=== PATIENT | female | born 1950 | race Caucasian/White ===

== ENCOUNTER → 2017-10-30 14:46 | Outpatient (CLI) | payer MEDICARE, SELFPAY ==
--- NOTE | 2017-10-30 14:49 | HPBI_ITS ---
MAMMOGRAPHY - BILATERAL SCREENING REASON FOR EXAM: Female, 67 years old. Routine annual screening examination. PERTINENT HISTORY: Non-contributory. Remote left stereotactic breast biopsy. Chronic inversions of both nipples. TECHNIQUE: Digital bilateral breast dajuan (3D mammographic acquisition) in the CC and MLO projections. 2-D mediolateral oblique (MLO) and craniocaudad (CC) views of both breasts were obtained. CAD: Full Field Digital Mammography with Computer Added Detection was performed. COMPARISON: Comparison is made with prior study dated June 24, 2016 and November 14, 2014. FINDINGS: Breast Composition: There are scattered areas of fibroglandular density. There are no dominant masses or suspicious calcifications. A tissue clip marker is seen in the upper outer aspect of the left breast. This is unchanged. Stable bilateral benign-appearing axillary lymph nodes. No other significant abnormalities are identified. There has been no significant change since the prior study. HPBI/SCREENING MAMM (CAD), BILAT IMPRESSION: Stable bilateral screening mammogram. Yearly follow-up mammogram recommended. (A) ASSESSMENT CATEGORY: BIRADS Category 2: Benign. A letter regarding these results will be sent to the patient by the facility within 30 days. Approximately 10% of breast cancers are not detected by mammography. A normal mammogram should not delay biopsy of a clinically suspicious abnormality. [id number] Electronically Signed: Lyndon Lira MD at 8:49 EST Tel [phone], Service support ,
== END ==
PROVIDERS: Family Provider Family Medicine; PCP Family Medicine; Visit Provider Family Medicine
DX: Z12.31 Encounter for screening mammogram for malignant neoplasm of breast (principal)
CPT/HCPCS: 77063; 77067

== ENCOUNTER → 2020-05-10 10:22 | Outpatient (CLI) | payer MEDICARE, SELFPAY ==
--- NOTE | 2020-05-10 10:25 | BI_ITS ---
MAMMOGRAPHY - BILATERAL SCREENING REASON FOR EXAM: Female, 69 years old. Routine annual screening examination. PERTINENT HISTORY: Non-contributory. TECHNIQUE: Digital bilateral breast candace (3D mammographic acquisition) in the CC and MLO projections. 2-D mediolateral oblique (MLO) and craniocaudad (CC) views of both breasts were obtained. CAD: Full Field Digital Mammography with Computer Added Detection was performed. COMPARISON: Comparison is made with prior study of 10/30/2017 and 06/24/2016. FINDINGS: Breast Composition: There are scattered areas of fibroglandular density. There are no dominant masses or suspicious calcifications. No other significant abnormalities are identified. There has been no significant change since the prior study. BI/SCREEN MAMM (CAD) W/CANDACE BILAT IMPRESSION: Stable bilateral screening mammogram. Yearly follow-up mammogram recommended. (A) ASSESSMENT CATEGORY: BIRADS Category 2: Benign. A letter regarding these results will be sent to the patient by the facility within 30 days. Approximately 10% of breast cancers are not detected by mammography. A normal mammogram should not delay biopsy of a clinically suspicious abnormality. [id number] Electronically Signed: Lyndon Lira, at 12:02 EDT , Service support ,
--- NOTE | 2020-05-10 10:30 | BD_ITS ---
STUDY: DUAL ENERGY X-RAY ABSORPTIOMETRY / DXA REASON FOR EXAM: Female, 69 years old. 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 COMPARISON: Comparison is made with prior study done 06/24/2016. FINDINGS: Lumbar Spine (L1-L4): g/cm2 (0.995) / T-score (-1.4) / Z-score (0.2) Findings are suggestive of osteopenia with a low fracture risk. Left Femur Total: g/cm2 (0.786) / T-score (-1.8) / Z-score (-0.4) Left Femoral Neck: g/cm2 (0.813) / T-score (-1.6) / Z-score (0.0) Right Femur Total: g/cm2 (0.753) / T-score (-2.0) / Z-score (-0.7) Right Femoral Neck: g/cm2 (0.823) / T-score (-1.5) / Z-score (0.0) The T-Scores on the most recent prior examination were: Lumbar Spine (L1-L4): There has been worsening of bone density since the previous examination. Left Femur Total: which represents a worsening of 7.4%. Right Femur Total: which represents a worsening of 10.3%. BD/Dexa Bone Density Study IMPRESSION: The patient is considered osteopenic as outlined below according to World Regino Organization (WHO) criteria with a moderate fracture risk. There has been worsening of bone density since the previous examination. Reference Information: The T-score is the number of standard deviations above or below the standard which is normal for young adults at their peak bone mineral density. The World Health Organization (WHO) interprets the T-scores as follows: Above -1 Normal bone density Between -1 and -2.5 Osteopenia Equal to / or below -2.5 Osteoporosis As a practical clinical guideline, osteopenia may be graded as follows: Mild -1 through -1.5 Moderate -1.6 through -2.0 Severe -2.1 through -2.4 The Z-score is the number of standard deviations above or below age-matched controls. A Z-score of less than -1.5 would be considered abnormal. References: 1. NIH Osteoporosis and Related Bone Diseases http://www.osteo.org 2. International Society for Clinical Densitometry http://www.iscd.org 3. National Osteoporosis Foundation http://www.nof.org Electronically Signed: Lyndon Lira, at 12:47 EDT , Service support ,
== END ==
PROVIDERS: PCP Family Medicine; Referring Provider Family Medicine; Visit Provider Family Medicine
DX: Z12.31 Encounter for screening mammogram for malignant neoplasm of breast (principal); Z13.820 Encounter for screening for osteoporosis; Z78.0 Asymptomatic menopausal state
CPT/HCPCS: 77063; 77067; 77080

== ENCOUNTER → 2021-02-01 09:57 | Outpatient (CLI) | payer MEDICARE, SELFPAY ==
--- NOTE | 2021-02-01 10:03 | ECHOD_ITS ---
Reason For Study: Palpitations Procedure This was a 2D Doppler, Color Flow transthoracic echocardiogram. The study was technically difficult. Exam performed in department. Left Ventricle Normal LV size. Left ventricular systolic function is normal. The estimated ejection fraction is 60 %. Diastolic function is indeterminate. No regional wall motion abnormalities noted. Right Ventricle Normal RV size. Normal systolic function. Atria The left atrium is mildly enlarged. Normal right atrium. No doppler evidence for ASD. Bubble contrast study negative for right to left interatrial shunt. Mitral Valve There is no mitral annular calcification. Normal mitral valve. Mild-Moderate (1-2+) mitral valve insufficiency. Tricuspid Valve Normal tricuspid valve. Trivial tricuspid valve insufficiency. Right ventricular systolic pressure estimated to be 17 mmHg. Aortic Valve Trisinus/trileaflet aortic valve. Mild focal aortic valve calcification. Mild (1+) aortic valve insufficiency. Pulmonic Valve The pulmonic valve is not well visualized. Trivial pulmonic valve insufficiency. Great Vessels Normal sized aortic root. Pericardium/Pleural No pericardial effusion. Medication Performed a rapid injection of agitated mix of 9 cc saline and 1cc air to assess for atrial septal defect. MMode/2D Measurements & Calculations LVIDd: 3.6 cm IVSd: 1.1 cm Ao root diam: 3.8 cm LVIDs: 2.2 cm LVPWd: 1.1 cm RVDd: 3.1 cm FS: 39.3 % LAV(MOD-bp): 62.3 ml LVAd ap4: 29.5 cm2 SV(MOD-sp4): 55.8 ml LAV(MOD-bp) Indexed: 30.2 ml/m2 LVLd ap4: 8.0 cm LAV(MOD-sp2): 59.9 ml EDV(MOD-sp4): 89.4 ml LAV(MOD-sp4): 61.0 ml EDV(sp4-el): 92.3 ml LVAs ap4: 15.8 cm2 LVLs ap4: 6.5 cm ESV(MOD-sp4): 33.6 ml ESV(sp4-el): 32.6 ml EF(MOD-sp4): 62.4 % EF(sp4-el): 64.7 % SV(sp4-el): 59.7 ml LA A4 area: 21.2 cm2 LA dimension(2D): 3.9 cm RA A4 area: 14.7 cm2 Doppler Measurements & Calculations MV E max ian: 81.9 cm/sec Lat Peak E' Ian: 8.0 cm/sec Med Peak E' Ian: 5.0 cm/sec MV A max ian: 111.4 cm/sec E/E' lat: 10.2 E/E' med: 16.5 MV E/A: 0.74 Ao V2 max: 152.5 cm/sec AI max ian: 335.8 cm/sec LV V1 max: 117.0 cm/sec Ao max P.3 mmHg AI max P.1 mmHg LV V1 max P.5 mmHg Ao V2 mean: 109.3 cm/sec Ao mean P.1 mmHg AI dec slope: 143.3 cm/sec2 Ao V2 VTI: 33.0 cm AI P1/2t: 686.6 msec PA V2 max: 86.7 cm/sec PI end-d ian: 97.3 cm/sec TR max ian: 184.6 cm/sec TR max P.6 mmHg ECHO/Echo Complete Interpretation Summary The study was technically difficult. Left ventricular systolic function is normal. The estimated ejection fraction is 60 %. The left atrium is mildly enlarged. Mild-Moderate (1-2+) mitral valve insufficiency. Trivial tricuspid valve insufficiency. Mild focal aortic valve calcification. Mild (1+) aortic valve insufficiency. Trivial pulmonic valve insufficiency. Right ventricular systolic pressure estimated to be 17 mmHg. Diastolic function is indeterminate. Bubble contrast study negative for right to left interatrial shunt. Ordering Physician: Barb Singh Referring Physician: Barb Singh Performed By: Hien Ross, TINA, RVT
[2021-02-01 10:32] LABS: D-Dimer Quantitative (DVT/PE) 0.32 FEU/ug/m (0.27-0.49)
== END ==
PROVIDERS: PCP Internal Medicine; Referring Provider Internal Medicine; Visit Provider Internal Medicine
DX: R07.89 Other chest pain (principal); R00.2 Palpitations
CPT/HCPCS: 85379; 93225; 93226; 93306; A4216

== ENCOUNTER 2021-02-04 18:27 | Emergency (ER) | payer MEDICARE, SELFPAY ==
[2021-02-04 18:30] VITALS: BP 163/69; PULSE 49; RESP 16; TEMP 36.4; O2SAT 96; BMI 32.1
--- NOTE | 2021-02-04 18:54 | EKG12_ITS ---
Test Reason : PALPS Blood Pressure : / mmHG Vent. Rate : 092 BPM Atrial Rate : 092 BPM P-R Int : 158 ms QRS Dur : 084 ms QT Int : 370 ms P-R-T Axes : 033 001 039 degrees QTc Int : 457 ms Sinus rhythm with Premature atrial complexes in a pattern of bigeminy Minimal voltage criteria for LVH, may be normal variant Borderline ECG Confirmed by MITCH MOORE, FREDIS ([id number]), emblem fuser tender BRITTANY LYNN ([id number]) on 02/08/2021 8:14:35 AM Referred By: KHADIJAH Confirmed By:FREDIS MEYER MD
--- NOTE | 2021-02-04 18:54 | RAD_ITS ---
HISTORY: chest pain EXAMINATION/TECHNIQUE: XR Chest 1 View: Portable upright AP chest x-ray COMPARISON: None FINDINGS: LINES/DEVICES: None. LUNGS: No consolidation, edema or effusion. No pneumothorax. MEDIASTINUM AND CARDIOVASCULAR STRUCTURES: Cardiac silhouette not enlarged. Central airways and mediastinal contour are unremarkable. BONES AND SOFT TISSUES: No acute bony abnormalities. RAD/Chest 1 View (Portable) IMPRESSION: No radiographic evidence of acute cardiopulmonary disease. at 2019 Reported and signed by: Sandeep Ricardo MD Electronically Signed: Sandeep Ricardo MD at 20:18 EDT Tel , Service support ,
--- NOTE | 2021-02-04 18:56 | EDS_ITS ---
HPI History of Present Illness Chief Complaint: Palpitations Informant: patient Narrative Narrative: 70-year-old female presents to the emergency department with palpitations and chest pressure. Patient states that she has been feeling this for several weeks. She went to see her primary care physician. She had an echocardiogram and Holter monitor on Thursday. Echocardiogram showed normal left ventricular systolic function, ejection fraction of 60%. Right ventricular systolic pressure 17 - bubble study. There is mild to moderate mitral valve insufficiency and mild aortic valve insufficiency. The patient turned the Holter monitor and today there is been no results. She is also supposed to have a stress test on Thursday but she was unable to do it as she recently developed some sciatica. Today the patient developed chest pressure which she had not had before. She notes her blood pressures around 200 systolic at home before she came to the emergency department with a pulse around 49. PFSH [facility] Medical History (Updated 02/04/21 @ 19:[address] Roby Pardo DO) Asthma GERD (gastroesophageal reflux disease) Hypertension Home Medications metoprolol succinate 25 mg PO DAILY #30 ea 02/04/21 [Rx Last Taken Unknown] Allergy/AdvReac Type Severity Reaction Status Date / Time clarithromycin [From Biaxin] Allergy NEEDS Verified 02/04/21 18:29 FOLLOW-UP simvastatin Allergy Pain in Verified 02/04/21 18:29 joints no surgical history (Noncontributory) Social History (Updated 02/04/21 @ 18:[address] Roby Pardo DO) Smoking Status: Unknown if ever smoked substance use type: does not use ROS ROS ED Constitutional Constitutional ED: Denies chills or weight loss Eyes Eyes: Denies change in vision or diplopia ENT ENT ED: Denies ear pain, rhinorrhea or sore throat Cardiovascular Cardiovascular: Reports chest pain and palpitations; Denies orthopnea or racing heartbeat Respiratory/Chest Respiratory/Chest: Denies cough, dyspnea or orthopnea Gastrointestinal Gastrointestinal: Denies abdominal pain, diarrhea, nausea or vomiting Genitourinary Genitourinary ED: Denies dysuria, hematuria or urinary frequency Musculoskeletal Musculoskeletal: Denies arthralgias or myalgias Integumentary Denies abscess or rash Neurologic Neurologic: Denies headache(s) or weakness Psychiatric Psychiatric: Denies anxiety, depression, suicidal ideation or suicidal thoughts Endocrine Endocrinology: Denies polydipsia, polyphagia or polyuria Allergic/Immunologic Allergic/Immunologic ED: Denies mouth swelling, tongue swelling or urticaria EXAM Physical Exam Const Vital Signs: 02/04/21 18:30 02/04/21 18:46 02/04/21 19:33 Temperature 97.6 F L Temperature Source Temporal Pulse Rate 49 L 82 Respiratory Rate 16 17 Respiratory Effort Non-Labored Respiratory Pattern Normal Blood Pressure 163/69 H 145/79 H Blood Pressure Mean 100 101 Pulse Ox 96 92 Oxygen Delivery Method Room Air Room Air Positive well nourished and well developed General Appearance ED: well developed HEENT Reports normocephalic, head/scalp atraumatic and moist mucous membranes Eyes PERRL and EOMs intact bilaterally Neck no lymphadenopathy, supple and no JVD Resp normal respiratory effort and clear to auscultation bilaterally Cardio no murmurs Rate: other Other Details: Patient appears to be in bigeminy on the monitor. There is a strong first pulse followed by faint second 1 followed by compensatory pause. GI normal to inspection, nondistended, normoactive bowel sounds and non-tender Palpation: soft Back/Spine no CVA tenderness and normal ROM Extremity normal to inspection General Extremety ED: Negative for edema General Extremity: Negative for edema Neuro oriented x3 and CN's II-XII intact bilaterally Sensorium / Orientation: alert Motor Exam: strength 5/5 throughout Psych mental status grossly normal Mood & Affect: Negative for depressed or tearful Skin no rashes or lesions noted and no wounds Heart Score History: Slightly/Non-Suspicious ECG: Normal Age: >/= 65 years Risk Factors: 1 or 2 Risk Factors Troponin: </= Normal Limit Score: 3 MDM MDM MDM Narrative Medical decision making narrative: Patient continues to have supraventricular complexes in a bigeminy pattern. Blood pressure has been stable. BMP and magnesium and TSH are normal. Troponin is negative. My interpretation of the plain film of the chest x-ray is no acute process. I spoke with on-call cardiology Dr. Michael. We will place her on some metoprolol have her follow- up either with cardiology or with Dr. Signh. Her stress test has been rescheduled for the . Lab Data Labs: Laboratory Results - last 24 hr 02/04/21 02/04/21 19:00 19:00 WBC 10.8 RBC 4.63 Hgb 10.3 L Hct 34.4 L MCV 74.3 L MCH 22.2 L MCHC 29.9 L RDW Std Deviation 43.9 RDW Coeff of [place] 16.4 H Plt Count 223 MPV 11.2 Immature Gran % (Auto) 0.400 Neut % (Auto) 53.2 Lymph % (Auto) 35.2 Brule % (Auto) 9.5 Eos % (Auto) 1.2 Baso % (Auto) 0.5 Absolute Neuts (auto) 5.8 Absolute Lymphs (auto) 3.81 Nucleated RBC % 0 Sodium 142 Potassium 3.8 Chloride 108 H Carbon Dioxide 26.0 Anion Gap 8 BUN 25 H Creatinine 1.09 H Estim Creat Clear Calc 48.04 Est GFR (MDRD) Af Amer 64 Est GFR (MDRD) Non-Af 53 L BUN/Creatinine Ratio 22.9 H Glucose 124 H Calcium 8.8 Magnesium 2.1 Troponin I < 0.015 TSH 3.06 EKG Initial EKG: Attestation: I personally reviewed and interpreted this EKG as follows: Comments: EKG demonstrated sinus rhythm with premature atrial complexes in a pattern of bigeminy. Rate 92. Discharge Plan Triage Chief Complaint: Palpitations ED Provider: Roby Pardo Dx/Rx/DC Orders Clinical Impression: Atrial bigeminy Instructions: ED Palpitations Prescriptions: New metoprolol succinate 25 mg capsule,sprinkle,ER 24hr 25 mg PO DAILY Qty: 30 RF: 0 Primary Care Provider: Barb Singh Referrals: Barb Singh DO [Primary Care Provider] - As soon as possible Robert Michael MD [STAFF PHYSICIAN] - As soon as possible Disposition Disposition: Home, self care
[2021-02-04 19:28] LABS: Absolute Lymphocyte Count 3.81 X10^3/uL (0.83-4.51); Absolute Neutrophil Count 5.8 X10^3/uL (2.0-7.7); Basophil# 0.05 X10^3/uL; Basophil% 0.5 % (0-1); Eosinophil# 0.13 X10^3/uL; Eosinophils% 1.2 % (0-5); Hematocrit 34.4 % (37-47); Hemoglobin 10.3 g/dL (12.0-15.0); Lymphocyte # 3.81 X10^3/ul (0.83-4.51); Lymphocyte % 35.2 % (19-41); Mean Corp Hgb Conc 29.9 g/dL (32-36); Mean Corpuscular Hgb 22.2 pg (27.0-32.0); Mean Corpuscular Volume 74.3 fL (81-99); Mean Platelet Vol. 11.2 fl (6.2-12.0); Monocyte# 1.03 X10^3/uL; Monocyte% 9.5 % (0-10); NRBC Flagged by Analyzer 0 % (0-5); Neutrophil # 5.76 X10^3/uL (2.7-7.7); Neutrophil % 53.2 % (47-70); Platelet Count 223 K/mm3 (150-450); RBC Distribution Width CV 16.4 % (11.6-14.6); RBC Distribution Width SD 43.9 fl (35.1-43.9); Red Blood Count 4.63 M/mm3 (4.2-5.4); White Blood Count 10.8 K/mm3 (4.4-11.0)
[2021-02-04 19:33] VITALS: BP 145/79; PULSE 82; RESP 17; O2SAT 92
[2021-02-04 19:41] LABS: Anion Gap 8 (5-15); BUN 25 mg/dL (7-18); BUN/Creat Ratio 22.9 RATIO (10-20); Calcium,Total 8.8 mg/dL (8.5-10.1); Chloride 108 mmol/L (98-107); Creatinine, Serum 1.09 mg/dL (0.55-1.02); EST Glomerular Filtration Rate 53 mL/min (>60); Est Glom Filt Rate - Afr Amer 64 mL/min (>60); Estimated Creatinine Clearance 48.04 ml/min; Glucose 124 mg/dL (74-106); Magnesium 2.1 mg/dL (1.6-2.6); Potassium 3.8 mmol/L (3.5-5.1); Sodium Level 142 mmol/L (136-145); Thyroid Stim Hormone (TSH) 3.06 uIU/mL (0.358-3.74)
[2021-02-04 19:59] VITALS: BP 147/79; PULSE 78; RESP 14; O2SAT 93
== END 2021-02-04 20:04 | disposition home or self-care (01) ==
PROVIDERS: Emergency Provider Emergency Medicine; PCP Internal Medicine
DX: R00.8 Other abnormalities of heart beat (principal); J45.909 Unspecified asthma, uncomplicated; K21.9 Gastro-esophageal reflux disease without esophagitis; I10 Essential (primary) hypertension; Z79.899 Other long term (current) drug therapy
CPT/HCPCS: 71045; 80048; 83735; 84443; 84484; 85025; 93005; 99284; A4216

== ENCOUNTER → 2021-03-07 07:13 | Outpatient (CLI) | payer MEDICARE, SELFPAY ==
--- NOTE | 2021-03-07 09:40 | STRESSREP ---
Stress Test Report Date: 03-07-2021 Procedure: Exercise tolerance test/imaging study Indications: Chest pain; shortness of breath/dyspnea on exertion Consent: Per the patient Procedure: The patient exercised on a Robson protocol for 4 minutes and 41 completing Stage I and 1 minute and 41 seconds of Stage II achieving a peak heart rate of 164 bpm (107% predicted maximal heart rate) with a peak blood pressure 184/105 mmHg and a peak MET capacity of 6 METs. The baseline ECG demonstrated sinus rhythm. The peak exercise ECG demonstrated no obvious ECG changes. There was a rare PAC pretest and an occasional PAC/repetitive PAC in recovery. The functional capacity was considered decreased. There was chest discomfort/pressure and shortness of breath at peak exercise with subsequent spontaneous resolution in recovery. The examination was discontinued secondary to chest discomfort and shortness of breath/dyspnea. Impression: 1. Technically adequate (percent predicted maximal heart rate greater than 85%) exercise tolerance test 2. Peak exercise ECG with no obvious ECG changes 3. There was a rare PAC pretest and an occasional PAC/repetitive PAC in recovery 4. Normal resting blood pressure-hypertensive response to exercise 4. Nuclear images pending Myocardial perfusion imaging study: Technique: The patient was injected with 10.0 mCi of technetium 99m Cardiolite and subsequently rest SPECT Cardiolite nuclear imaging was obtained in the horizontal long, vertical long, and short axis views. he patient exercised on a Robson protocol for 4 minutes and 41 completing Stage I and 1 minute and 41 seconds of Stage II achieving a peak heart rate of 164 bpm (107% predicted maximal heart rate) with a peak blood pressure 184/105 mmHg and a peak MET capacity of 6 METs. The patient was injected with 33.0 mCi of technetium 99m Cardiolite and subsequently stress SPECT Cardiolite nuclear imaging was obtained in the horizontal long, vertical long, and short axis views. A gated Cardiolite study at peak stress was obtained. Interpretation: Rest and stress SPECT Cardiolite nuclear imaging status post realignment, normalization, and attenuation correction, demonstrates the appearance of relative uniform tracer uptake and myocardial perfusion appearing within normal limits. There is end systolic thickening and brightening. The gated Cardiolite study demonstrates myocardial thickening and inward wall motion. The reported LVEF is 67%. Impression: 1. Rest and stress SPECT Cardiolite nuclear imaging demonstrate relative uniform tracer uptake and myocardial perfusion appearing within normal limits. 2. The gated Cardiolite study reports an LVEF of 67%. This note was generated with [employer] software. It may contain incorrect words, spelling, and punctuation that were not noted in checking the note before signing.
== END ==
PROVIDERS: PCP Internal Medicine; Referring Provider Internal Medicine; Visit Provider Internal Medicine
DX: R07.89 Other chest pain (principal)
CPT/HCPCS: 78452; 93017; A9500; A4216

== ENCOUNTER → 2021-07-02 10:30 | Outpatient (CLI) | payer MEDICARE, SELFPAY | PROVIDERS: PCP Internal Medicine; Referring Provider Nurse Practitioner; Visit Provider Nurse Practitioner | DX: R00.2 Palpitations (principal) | CPT/HCPCS: 93225; 93226 ==

== ENCOUNTER → 2021-07-09 11:20 | Outpatient (CLI) | payer MEDICARE, SELFPAY | PROVIDERS: PCP Internal Medicine; Referring Provider Nurse Practitioner; Visit Provider Nurse Practitioner | DX: G47.10 Hypersomnia, unspecified (principal) | CPT/HCPCS: 95806 ==

== ENCOUNTER → 2021-07-11 09:46 | Outpatient (CLI) | payer MEDICARE, SELFPAY ==
[2021-07-11 10:51] LABS: Anion Gap 6 (5-15); BUN 20 mg/dL (7-18); BUN/Creat Ratio 21.1 RATIO (10-20); Calcium,Total 9.1 mg/dL (8.5-10.1); Chloride 107 mmol/L (98-107); Creatinine, Serum 0.95 mg/dL (0.55-1.02); EST Glomerular Filtration Rate 62 mL/min (>60); Est Glom Filt Rate - Afr Amer 75 mL/min (>60); Glucose 89 mg/dL (74-106); Magnesium 2.2 mg/dL (1.6-2.6); Sodium Level 141 mmol/L (136-145)
== END ==
PROVIDERS: PCP Internal Medicine; Visit Provider Nurse Practitioner Gerontology
DX: I49.1 Atrial premature depolarization (principal)
CPT/HCPCS: 36415; 80048; 83735

== ENCOUNTER → 2021-07-23 08:23 | Outpatient (CLI) | payer MEDICARE, SELFPAY ==
--- NOTE | 2021-07-23 08:25 | BI_ITS ---
MAMMOGRAPHY - BILATERAL SCREENING 3-D TOMOSYNTHESIS REASON FOR EXAM: Female, 70 years old. Routine screening PERTINENT HISTORY: No significant family history. TECHNIQUE: 2-D mammograms and 3-D Tomosynthesis of the breast (s) were performed. CAD was performed. COMPARISON: 05/10/2020 FINDINGS: The breast composition is composed of scattered fibroglandular density. Scattered benign calcifications are seen. No dense spiculated masses or suspicious microcalcifications are identified. No architectural distortion is identified. There is no skin thickening or retraction. There has been no significant change since the prior study. BI/SCRN MAMM (CAD)W/CANDACE BILAT IMPRESSION: No mammographic signs of malignancy. Routine yearly mammograms recommended. ASSESSMENT CATEGORY: BIRADS Category 1: Negative. A letter regarding these results will be sent to the patient by the facility within 30 days. FOLLOW UP RECOMMENDATION: Yearly follow up mammogram recommended. (A) Approximately 10% of breast cancers are not detected by mammography. A normal mammogram should not delay biopsy of a clinically suspicious abnormality. Electronically Signed: Lalito Cornejo MD at 11:26 EST , Service support ,
== END ==
PROVIDERS: PCP Internal Medicine; Referring Provider Nurse Practitioner; Visit Provider Nurse Practitioner
DX: Z12.31 Encounter for screening mammogram for malignant neoplasm of breast (principal)
CPT/HCPCS: 77063; 77067

== ENCOUNTER 2021-09-19 13:09 | Outpatient (CLI) | payer MEDICARE, SELFPAY | END 2021-09-19 23:59 | disposition short-term general hospital (02) | LOC: LABSPEC 13:13 | PROVIDERS: PCP Internal Medicine; Visit Provider Internal Medicine | DX: R05.9 Cough, unspecified (principal) | CPT/HCPCS: 87635; U0003; U0005 ==

== ENCOUNTER 2021-10-01 09:36 | Emergency (ER) | payer MEDICARE, SELFPAY ==
[2021-10-01 09:37] VITALS: BP 128/85; PULSE 46; RESP 18; TEMP 36.6; O2SAT 96; BMI 33.6
[2021-10-01 09:46] VITALS: BP 128/85; PULSE 46; RESP 18; TEMP 36.6; O2SAT 96
--- NOTE | 2021-10-01 09:59 | EDS_ITS ---
HPI History of Present Illness Chief Complaint: Diarrhea Informant: patient Narrative Narrative: 71-year-old female presenting to the emergency department with diarrhea. Patient states that on 22 September she started on amoxicillin for infection of her labia. She states that after a couple days she developed diarrhea and stopped the antibiotic because the abscess had ruptured. She states the diarrhea got better but has now returned. She states that about 1 h our after eating she begins to see the small particles of food that she ate in her stool. She had notes a headache which she believes is from dehydration. No syncope or near syncope. She spoke with her doctor today who recommended an emergency department visit [facility] Medical History Anemia Asthma Essential hypertension GERD (gastroesophageal reflux disease) History of migraine headaches Hyperlipidemia IBS (irritable bowel syndrome) Osteoarthritis Osteopenia Premature atrial contraction Home Medications albuterol sulfate 90 mcg/actuation aerosol inhaler 2 puff INHALATION Q6H PRN 03/12/21 [History Last Taken Unknown] alendronate 70 mg tablet 70 mg PO QWEEK 03/12/21 [History Last Taken Unknown] aspirin 81 mg tablet,delayed release 81 mg PO DAILY 03/12/21 [History Last Taken Unknown] calcium carbonate 400 mg calcium (1,000 mg) chewable tablet 400 mg PO DAILY 03/12/21 [History Last Taken Unknown] cholecalciferol (vitamin D3) 125 mcg (5,000 unit) tablet 125 mcg PO DAILY 03/12/21 [History Last Taken Unknown] fluticasone 250 mcg-salmeterol 50 mcg/dose blistr powdr for inhalation 1 inh INHALATION BID 03/12/21 [History Last Taken Unknown] loratadine 10 mg tablet 10 mg PO DAILY 03/12/21 [History Last Taken Unknown] losartan 50 mg tablet 50 mg PO DAILY 03/12/21 [History Last Taken Unknown] omeprazole 20 mg capsule,delayed release 20 mg PO DAILY 03/12/21 [History Last Taken Unknown] polyethylene glycol 3350 17 gram oral powder packet 17 g PO DAILY 03/12/21 [History Last Taken Unknown] zinc 50 mg tablet 50 mg PO DAILY 03/12/21 [History Last Taken Unknown] ferrous sulfate 105 mg-C 500 mg-folic acid 800 mcg tablet,extend.rel 1 tab PO DAILY 03/21/21 [History Last Taken Unknown] metoprolol succinate 25 mg tablet,extended release 24 hr 25 mg PO DAILY #90 tab 06/21/21 [Rx Last Taken Unknown] Allergy/AdvReac Type Severity Reaction Status Date / Time clarithromycin [From Biaxin] Allergy NEEDS Verified 10/01/21 09:39 FOLLOW-UP simvastatin Allergy Pain in Verified 10/01/21 09:39 joints Family History Mother Hypertension CVA (cerebral vascular accident) Asthma Father CKD (chronic kidney disease) Brother Crohn's disease Brother , Age 57 Myocardial infarction Son Cancer lymphoma Surgical History History of partial hysterectomy History of tonsillectomy Social History Smoking Status: Never smoker alcohol intake: never substance use type: does not use caffeine: No ROS ROS ED Constitutional Constitutional ED: Denies chills, fever(s) or weight loss Eyes Eyes: Denies change in vision or diplopia ENT ENT ED: Denies ear pain, rhinorrhea or sore throat Cardiovascular Cardiovascular: Denies chest pain, orthopnea, palpitations or racing heartbeat Respiratory/Chest Respiratory/Chest: Denies cough, dyspnea or orthopnea Gastrointestinal Gastrointestinal: Reports diarrhea; Denies abdominal pain, nausea or vomiting Genitourinary Genitourinary ED: Denies dysuria, hematuria or urinary frequency Musculoskeletal Musculoskeletal: Denies arthralgias or myalgias Integumentary Denies abscess or rash Neurologic Neurologic: Reports headache(s); Denies weakness Psychiatric Psychiatric: Denies anxiety, depression, suicidal ideation or suicidal thoughts Endocrine Endocrinology: Denies polydipsia, polyphagia or polyuria Allergic/Immunologic Allergic/Immunologic ED: Denies mouth swelling, tongue swelling or urticaria EXAM Physical Exam Const Vital Signs: 10/01/21 09:37 10/01/21 09:46 10/01/21 11:14 Temperature 97.8 F 97.8 F 97.6 F L Temperature Source Temporal Temporal Oral Pulse Rate 46 L 46 L 81 Respiratory Rate 18 18 16 Blood Pressure 128/85 H 128/85 H 138/77 H Blood Pressure Mean 99 99 97 Pulse Ox 96 96 97 Oxygen Delivery Method Room Air Room Air Room Air 10/01/21 12:41 Temperature Temperature Source Pulse Rate 82 Respiratory Rate 16 Blood Pressure 138/77 H Blood Pressure Mean 97 Pulse Ox 97 Oxygen Delivery Method Room Air Positive well nourished, well developed and obese General Appearance ED: well developed Nutritional Appearance: obese HEENT Reports normocephalic, head/scalp atraumatic, TM's clear and moist mucous membranes Negative for trauma Tympanic Membrane ED: Yes TM's clear Eyes PERRL and EOMs intact bilaterally Neck no lymphadenopathy, supple and no JVD Resp normal respiratory effort and clear to auscultation bilaterally Cardio regular rate, regular rhythm and no murmurs GI non-tender and non-distended Auscultation: hyperactive bowel sounds Palpation: soft Back/Spine no CVA tenderness and normal ROM Extremity normal to inspection General Extremety ED: Negative for edema General Extremity: Negative for edema Neuro oriented x3 and CN's II-XII intact bilaterally Sensorium / Orientation: alert Motor Exam: strength 5/5 throughout Psych mental status grossly normal Mood & Affect: Negative for depressed or tearful Skin no rashes or lesions noted and no wounds MDM MDM MDM Narrative Medical decision making narrative: White count elevated 13.5. Glucose 114. Electrolytes are normal. Creatinine 0.9 with a BUN of 13. Patient unable to give a stool specimen in the 3-1/2 hours that she has been here. She will be discharged home with an outpatient order for stool studies. Return if worsening or concerns Lab Data Attestation: I reviewed the patient's lab results. Labs: Laboratory Results - last 24 hr 10/01/21 10/01/21 09:54 09:54 WBC 13.5 H RBC 5.09 Hgb 15.9 H Hct 45.5 MCV 89.4 MCH 31.2 MCHC 34.9 RDW Std Deviation 40.2 RDW Coeff of [place] 12.3 Plt Count 231 MPV 10.4 Immature Gran % (Auto) 0.300 Neut % (Auto) 80.1 H Lymph % (Auto) 13.[address] [place] % (Auto) 5.1 Eos % (Auto) 0.7 Baso % (Auto) 0.3 Absolute Neuts (auto) 10.9 H Absolute Lymphs (auto) 1.83 Nucleated RBC % 0 Sodium 139 Potassium 3.8 Chloride 109 H Carbon Dioxide 24.0 Anion Gap 6 BUN 13 Creatinine 0.92 Estim Creat Clear Calc 56.12 Est GFR (MDRD) Af Amer 78 Est GFR (MDRD) Non-Af 64 BUN/Creatinine Ratio 14.1 Glucose 114 H Calcium 8.7 Total Bilirubin 0.40 AST 16 ALT 22 Alkaline Phosphatase 46 Total Protein 7.5 Albumin 3.6 Globulin 3.9 Albumin/Globulin Ratio 0.9 Discharge Plan Triage Chief Complaint: Diarrhea ED Provider: Roby Pardo Dx/Rx/DC Orders Clinical Impression: Diarrhea Instructions: ED Diarrhea, Unknown Cause Prescriptions: No Action ferrous [id number] acid 105 mg iron- 500 mg-800 mcg tablet extended release 1 tab PO DAILY RF: 0 omeprazole 20 mg capsule,delayed release(DR/EC) 20 mg PO DAILY RF: 0 losartan 50 mg tablet 50 mg PO DAILY RF: 0 albuterol sulfate [ProAir HFA] 90 mcg/actuation HFA aerosol inhaler 2 puff inhalation Q6H PRN (Reason: Wheezing) RF: 0 fluticasone propion-salmeterol [Advair Diskus] 250-50 mcg/dose blister with device 1 inh inhalation BID RF: 0 cholecalciferol (vitamin D3) 125 mcg (5,000 unit) tablet 125 mcg PO DAILY RF: 0 loratadine [Claritin] 10 mg tablet 10 mg PO DAILY RF: 0 polyethylene glycol 3350 [Miralax] 17 gram powder in packet 17 g PO DAILY RF: 0 zinc 50 mg tablet 50 mg PO DAILY RF: 0 alendronate 70 mg tablet 70 mg PO QWEEK RF: 0 calcium carbonate 400 mg calcium (1,000 mg) tablet,chewable 400 mg PO DAILY RF: 0 aspirin [Adult Low Dose Aspirin] 81 mg tablet,delayed release (DR/EC) 81 mg PO DAILY RF: 0 metoprolol succinate 25 mg tablet extended release 24 hr 25 mg PO DAILY Qty: 90 RF: 3 Primary Care Provider: Anju Verde Referrals: Anju Verde DO [Primary Care Provider] - 3-5 Days Disposition Disposition: Home, Self Care
[2021-10-01] MEDS: 0.9% Normal Saline 1,000 ML 1000 ML IV (10:04)
[2021-10-01 10:05] LABS: Absolute Lymphocyte Count 1.83 X10^3/uL (0.83-4.51); Absolute Neutrophil Count 10.9 X10^3/uL (2.0-7.7); Basophil# 0.04 X10^3/uL; Basophil% 0.3 % (0-1); Eosinophil# 0.09 X10^3/uL; Eosinophils% 0.7 % (0-5); Hematocrit 45.5 % (37-47); Hemoglobin 15.9 g/dL (12.0-15.0); Lymphocyte # 1.83 X10^3/ul (0.83-4.51); Lymphocyte % 13.5 % (19-41); Mean Corp Hgb Conc 34.9 g/dL (32-36); Mean Corpuscular Hgb 31.2 pg (27.0-32.0); Mean Corpuscular Volume 89.4 fL (81-99); Mean Platelet Vol. 10.4 fl (6.2-12.0); Monocyte# 0.69 X10^3/uL; Monocyte% 5.1 % (0-10); NRBC Flagged by Analyzer 0 % (0-5); Neutrophil # 10.85 X10^3/uL (2.7-7.7); Neutrophil % 80.1 % (47-70); Platelet Count 231 K/mm3 (150-450); RBC Distribution Width CV 12.3 % (11.6-14.6); RBC Distribution Width SD 40.2 fl (35.1-43.9); Red Blood Count 5.09 M/mm3 (4.2-5.4); White Blood Count 13.5 K/mm3 (4.4-11.0)
[2021-10-01 10:23] LABS: ALB/GLOB Ratio 0.9 RATIO (0.9-2.4); AST(SGOT) 16 U/L (15-37); Alanine Aminotransfer ALT/SGPT 22 U/L (13-56); Albumin, Serum 3.6 g/dL (3.2-5.0); Alkaline Phosphatase 46 U/L (45-117); Anion Gap 6 (5-15); BUN 13 mg/dL (7-18); BUN/Creat Ratio 14.1 RATIO (10-20); Calcium,Total 8.7 mg/dL (8.5-10.1); Chloride 109 mmol/L (98-107); Creatinine, Serum 0.92 mg/dL (0.55-1.02); EST Glomerular Filtration Rate 64 mL/min (>60); Est Glom Filt Rate - Afr Amer 78 mL/min (>60); Estimated Creatinine Clearance 56.12 ml/min; Globulin 3.9 g/dL (2.2-4.2); Glucose 114 mg/dL (74-106); Potassium 3.8 mmol/L (3.5-5.1); Protein, Total 7.5 g/dL (6.4-8.2); Sodium Level 139 mmol/L (136-145)
[2021-10-01 11:14] VITALS: BP 138/77; PULSE 81; RESP 16; TEMP 36.4; O2SAT 97
--- NOTE | 2021-10-01 11:51 | NURSING ---
PER LAB, CANCELING STOOL. NOT ENOUGH
[2021-10-01 12:41] VITALS: BP 138/77; PULSE 82; RESP 16; O2SAT 97
--- NOTE | 2021-10-01 12:53 | ED.RN ---
PT ATTEMPTED TO GO TO THE BR AGAIN WITHOUT SUCCESS. PHYSICIAN AWARE
--- NOTE | 2021-10-01 15:23 | CHAPLAIN ---
Type of Pastoral Visit _x__ Initial Visit ___ Follow-up Visit ___ On-call Visit ___ General Patient Visit ___ Spiritual Assessment ___ Family Conference ___ Bereavement ___ Rapid Response ___ Code Blue ___ Other (describe below) Pastoral Care Referral From _x__ Patient ___ Family ___ Nurse ___ Physician ___ [employer] ___ Manager Product Support ___ Other (describe below) Sacrament/Intervention _x__ Active listening ___ Anointing ___ Islam ___ Bereavement ___ Communion ___ Camila exploration ___ ___ Life review ___ Prayer ___ Reconciliation ___ Sacrament of Sick _x__ Supportive presence ___ Wedding ___ Other (describe below) Pastoral Comments
== END 2021-10-01 13:41 | disposition home or self-care (01) ==
PROVIDERS: Emergency Provider Emergency Medicine; PCP Internal Medicine; Visit Provider Emergency Medicine
DX: R19.7 Diarrhea, unspecified (principal); I10 Essential (primary) hypertension; E78.5 Hyperlipidemia, unspecified; R51.9 Headache, unspecified
CPT/HCPCS: 80053; 85025; 87177; 87209; 87493; 87506; 96360; 99283; J7030; A4216

== ENCOUNTER 2021-10-01 14:35 | Outpatient (CLI) | payer MEDICARE, SELFPAY | END 2021-10-01 23:59 | disposition short-term general hospital (02) | LOC: LABSPEC 14:38 | PROVIDERS: PCP Internal Medicine; Referring Provider Internal Medicine; Visit Provider Internal Medicine | DX: R19.7 Diarrhea, unspecified (principal) | CPT/HCPCS: 87177; 87209; 87493; 87506 ==

== ENCOUNTER 2021-10-07 20:00 | Outpatient (CLI) | payer MEDICARE, SELFPAY | END 2021-10-07 23:59 | disposition home or self-care (01) | PROVIDERS: PCP Internal Medicine; Visit Provider Nurse Practitioner Acute Care | DX: G47.30 Sleep apnea, unspecified (principal) | CPT/HCPCS: 95810 ==

== ENCOUNTER 2021-11-19 08:12 | Outpatient (CLI) | payer MEDICARE, SELFPAY ==
--- NOTE | 2021-11-19 08:17 | RAD_ITS ---
STUDY: X-RAY - ESOPHAGUS (BARIUM SWALLOW) WITH FLUOROSCOPY REASON FOR EXAM: Female, 71 years old. CHOKING TECHNIQUE: 18 view(s) of the esophagus were obtained following swallowing of barium. FLUOROSCOPY TIME (if supplied): (28 seconds) minutes/seconds COMPARISON: None. FINDINGS: There is no demonstrated esophageal foreign body. There is no demonstrated stricture or mucosal abnormality. Normal gastroesophageal junction, without a demonstrated hiatal hernia. The patient ingested a 12 mm tablet that barium without difficulty. Normal visualized aortic arch and descending thoracic aorta. Normal visualized pulmonary parenchyma. Normal visualized osseous structures of the thorax. RAD/Esophagus Dual Contrast IMPRESSION: Normal plain film x-ray examination (barium swallow) of the esophagus. Electronically Signed: Lyndon Lira MD at 10:11 EDT ,
== END 2021-11-19 23:59 | disposition home or self-care (01) ==
PROVIDERS: PCP Internal Medicine; Referring Provider Internal Medicine; Visit Provider Internal Medicine
DX: T17.908A Unspecified foreign body in respiratory tract, part unspecified causing other injury, initial encounter (principal)
CPT/HCPCS: 74221

== ENCOUNTER → 2022-01-09 | Outpatient (CLI) | payer MEDICARE, SELFPAY | END | disposition home or self-care (01) | LOC: SL 12:20 | PROVIDERS: PCP Internal Medicine; Visit Provider Nurse Practitioner Acute Care | DX: Z46.89 Encounter for fitting and adjustment of other specified devices (principal) ==

== ENCOUNTER → 2022-01-30 | Outpatient (CLI) | payer MEDICARE, SELFPAY ==
--- NOTE | 2022-01-30 10:52 | US_ITS ---
STUDY: ABDOMINAL ULTRASOUND - RIGHT UPPER QUADRANT REASON FOR VISIT: Female, 71 years old FATTY LIVER TECHNIQUE: Ultrasound evaluation of the right upper quadrant was performed with real-time and static shelley-scale imaging. TECHNICAL QUALITY: Limited. Examination limited by bowel gas. COMPARISON: Comparison is made with prior examination dated 06/24/2016. FINDINGS: Liver: The liver measures 13.2 cm. There is increased echogenicity consistent with fatty infiltration. The bile ducts are within normal limits. There is hepatic color flow. The direction of portal flow is hepatopetal. There is no demonstrated mass lesion. Gallbladder: Normal distended gallbladder. The gallbladder wall measures 3 mm. There is a negative sonographic Bravo''s sign. There is no pericholecystic fluid. There are no gallstones. Common Bile Duct (C.B.D.): The common bile duct measures 1 mm. Pancreas: Normal size of the head, body and tail of the pancreas. There is normal echogenicity of the pancreas. There is no demonstrated pancreatic mass or cyst. Right Kidney: Normal size of the right kidney. The right kidney measures 12 cm x 5 cm x 4.5 cm. Normal renal cortex. The right cortex measures 1 cm. There is no demonstrated renal mass or cyst. There is an extra-renal pelvis of the right kidney. There is no distention of the renal calyces. US/Abdomen Limited IMPRESSION: Fatty infiltration of the liver. Right extrarenal pelvis. Electronically Signed: Lynodn Lira MD at 11:58 EDT ,
== END | disposition home or self-care (01) ==
PROVIDERS: PCP Internal Medicine; Referring Provider Internal Medicine; Visit Provider Internal Medicine
DX: K76.0 Fatty (change of) liver, not elsewhere classified (principal); M54.2 Cervicalgia
CPT/HCPCS: 76705

== ENCOUNTER → 2022-05-08 | Outpatient (CLI) | payer MEDICARE, SELFPAY ==
--- NOTE | 2022-05-08 13:15 | VDLE_ITS ---
Reason For Study: edema, post covid Procedure LEFT This is a venous duplex using B-mode, color GSV is normal. flow and spectral Doppler. CFV is compressible, spontaneous, phasic, Exam performed in department. competent, and demonstrates normal The exam was abbreviated due to the COVID 19 augmentation. protocol. FV is compressible, spontaneous, phasic, The exam was diagnostic. competent and demonstrates normal A preliminary report was called and/or faxed augmentation. to Dr. Verde. POP V is compressible, spontaneous, phasic, competent and demonstrates normal augmentation. T/P Trunk is compressible. PTV is compressible. LT PerV is compressible. VL/Venous Duplex US, Unilateral Interpretation Summary Deep veins of the left lower extremity are patent and compressible segmentally. There is no evidence of left lower extremity deep vein thrombosis. Valvular competence appears intac t within the proximal deep venous system on the left . The left great saphenous vein appears patent a nd compressible segmentally. Ordering Physician: Anju Verde Performed By: Mario Alberto Vidal RVT
== END | disposition home or self-care (01) ==
LOC: CVS 13:03
PROVIDERS: PCP Internal Medicine; Referring Provider Internal Medicine; Visit Provider Internal Medicine
DX: R60.0 Localized edema (principal); U09.9 Post COVID-19 condition, unspecified
CPT/HCPCS: 93971

== ENCOUNTER → 2022-05-16 | Outpatient (CLI) | payer MEDICARE, SELFPAY ==
--- NOTE | 2022-05-16 16:05 | VDLE_ITS ---
Reason For Study: Pain RIGHT LEFT CFV is compressible, spontaneous, phasic, GSV is normal. competent and demonstrates normal CFV is compressible, spontaneous, phasic, augmentation. competent, and demonstrates normal Procedure augmentation. This is a venous duplex using B-mode, color FV is compressible, spontaneous, phasic, flow and spectral Doppler. competent and demonstrates normal Exam performed in department. augmentation. A preliminary report was called and/or faxed POP V is compressible, spontaneous, phasic, to Ortho: Estefany, PCP: Dr. Verde. competent and demonstrates normal augmentation. T/P Trunk is compressible. Acute deep vein thrombosis is noted in the left PTV, PeroV and SoleusV. VL/Venous Duplex US, Unilateral Interpretation Summary Acute deep venous thrombosis left posterior tibial, peroneal, and soleus veins. Patent and compressible left great saphenous veins Normal flow values right common femoral vein Ordering Physician: Atul Rocha Referring Physician: Anju Verde D.O. Performed By: Karla Ocampo RVT
== END | disposition home or self-care (01) ==
LOC: CVS 15:16
PROVIDERS: PCP Internal Medicine; Referring Provider Physician Assistant Surgical; Visit Provider Physician Assistant Surgical
DX: M79.662 Pain in left lower leg (principal)
CPT/HCPCS: 93971

== ENCOUNTER → 2022-07-30 | Outpatient (CLI) | payer MEDICARE, SELFPAY ==
--- NOTE | 2022-07-30 08:48 | BD_ITS ---
STUDY: DUAL ENERGY X-RAY ABSORPTIOMETRY / DXA REASON FOR EXAM: Female, 71 years old. [id number] TECHNIQUE: Bone Mineral Density (BMD) measurements of lumbar spine and bilateral hips were obtained. COMPARISON: Comparison is made with prior study dated 05/10/2020. FINDINGS: Lumbar Spine (L1-L4): g/cm2 (0.915) / T-score (-1.1) / Z-score (1.0) Findings are suggestive of osteopenia with a low fracture risk. Left Femur Total: g/cm2 (0.779) / T-score (-1.3) / Z-score (0.2) Left Femoral Neck: g/cm2 (0.669) / T-score (-1.6) / Z-score (0.2) Right Femur Total: g/cm2 (0.760) / T-score (-1.5) / Z-score (0.0) Right Femoral Neck: g/cm2 (0.665) / T-score (-1.7) / Z-score (0.1) The T-Scores on the most recent prior examination were: Lumbar Spine (L1-L4): There has been improvement of bone density since the previous examination. Left Femur Total: which represents an improvement of 7.3%. Right Femur Total: which represents an improvement of 9.4%. BD/Dexa Bone Density Study IMPRESSION: The patient is considered osteopenic as outlined below according to World Regino Organization (WHO) criteria with a moderate fracture risk. There has been improvement of bone density since the previous examination. Reference Information: The T-score is the number of standard deviations above or below the standard which is normal for young adults at their peak bone mineral density. The World Health Organization (WHO) interprets the T-scores as follows: Above -1 Normal bone density Between -1 and -2.5 Osteopenia Equal to / or below -2.5 Osteoporosis As a practical clinical guideline, osteopenia may be graded as follows: Mild -1 through -1.5 Moderate -1.6 through -2.0 Severe -2.1 through -2.4 The Z-score is the number of standard deviations above or below age-matched controls. A Z-score of less than -1.5 would be considered abnormal. References: 1. NIH Osteoporosis and Related Bone Diseases www osteo.org 2. International Society for Clinical Densitometry www iscd.org 3. National Osteoporosis Foundation www nof.org Electronically Signed: Lyndon Lira MD at 10:26 EST ,
== END | disposition home or self-care (01) ==
LOC: OPBD 08:38
PROVIDERS: PCP Internal Medicine; Visit Provider Internal Medicine
DX: Z78.0 Asymptomatic menopausal state (principal)
CPT/HCPCS: 77080

== ENCOUNTER → 2022-08-05 | Outpatient (CLI) | payer MEDICARE, SELFPAY ==
--- NOTE | 2022-08-05 09:44 | VDLE_ITS ---
Reason For Study: acute embolism and thrombus Procedure LEFT This is a venous duplex using B-mode, color GSV is normal. flow and spectral Doppler. CFV is compressible, spontaneous, phasic, Exam performed in department. competent, and demonstrates normal The exam was abbreviated due to the COVID 19 augmentation. protocol. FV is compressible, spontaneous, phasic, The exam was diagnostic. competent and demonstrates normal A preliminary report was called and/or faxed augmentation. to Dr. Verde. POP V is compressible, spontaneous, phasic, competent and demonstrates normal augmentation. T/P Trunk is compressible. PTV is compressible. LT PerV is compressible. PTV, Peroneal V and Soleus V are now compressible. VL/Venous Duplex US, Unilateral Interpretation Summary There is no evidence of left lower extremity deep vein thrombosis. Left great s aphenous vein appears patent and compressible segmentally. This examination demonstrates improvement from May 16, 2022 when the patient had deep venous thrombosis involving the left posterior t ibial, peroneal, and soleus veins Abbreviated COVID-19 protocol utilized Ordering Physician: Anju Verde Performed By: Mario Alberto Vidal RVT
== END | disposition home or self-care (01) ==
LOC: CVS 09:43
PROVIDERS: PCP Internal Medicine; Referring Provider Internal Medicine; Visit Provider Internal Medicine
DX: I82.442 Acute embolism and thrombosis of left tibial vein (principal)
CPT/HCPCS: 93971

== ENCOUNTER → 2022-09-17 | Outpatient (CLI) | payer MEDICARE, SELFPAY ==
--- NOTE | 2022-09-17 09:08 | BI_ITS ---
MAMMOGRAPHY - BILATERAL SCREENING REASON FOR EXAM: Female, 72 years old. Routine annual screening examination. PERTINENT HISTORY: Non-contributory. Remote left stereotactic breast biopsy. Chronic bilateral nipple inversion. TECHNIQUE: Digital bilateral breast candace (3D mammographic acquisition) in the CC and MLO projections. 2-D mediolateral oblique (MLO) and craniocaudad (CC) views of both breasts were obtained. CAD: Full Field Digital Mammography with Computer Added Detection was performed. COMPARISON: Comparison is made with prior study dated 07/23/2021 and 05/10/2020. FINDINGS: Breast Composition: There are scattered areas of fibroglandular density. There are no dominant masses or suspicious calcifications. Stable benign-appearing bilateral axillary lymph nodes. A tissue clip marker is seen in the deep upper lateral portion of the left breast. No other significant abnormalities are identified. There has been no significant change since the prior study. BI/SCRN MAMM (CAD)W/CANDACE BILAT IMPRESSION: Stable bilateral screening mammogram. Yearly follow-up mammogram recommended. (A) ASSESSMENT CATEGORY: BIRADS Category 2: Benign. A letter regarding these results will be sent to the patient by the facility within 30 days. Approximately 10% of breast cancers are not detected by mammography. A normal mammogram should not delay biopsy of a clinically suspicious abnormality. [id number] Electronically Signed: Lyndon Lira MD at 10:45 EST ,
== END | disposition home or self-care (01) ==
LOC: OPBI 09:06
PROVIDERS: PCP Internal Medicine; Referring Provider Internal Medicine; Visit Provider Internal Medicine
DX: Z12.31 Encounter for screening mammogram for malignant neoplasm of breast (principal); N64.59 Other signs and symptoms in breast
CPT/HCPCS: 77063; 77067

== ENCOUNTER 2022-09-18 09:08 | Day surgery (SDC) | payer MEDICARE, SELFPAY ==
--- NOTE | 2022-09-08 12:33 | RAD_ITS ---
INDICATION: PREOP EXAMINATION/TECHNIQUE: X-RAY - XR Chest 2 Views COMPARISON: 02/04/2021. FINDINGS: The lungs are clear. Tortuous and calcified thoracic aorta. The heart is not enlarged. No pleural effusion or pneumothorax. Degenerative changes of the thoracic spine. RAD/Chest PA and Lateral IMPRESSION: No acute radiographic abnormalities. Electronically Signed: Dave Johnson MD at 17:32 EST ,
[2022-09-08 13:39] LABS: Absolute Lymphocyte Count 3.18 X10^3/uL (0.83-4.51); Absolute Neutrophil Count 4.2 X10^3/uL (2.0-7.7); Basophil# 0.05 X10^3/uL; Basophil% 0.6 % (0-1); Eosinophil# 0.11 X10^3/uL; Eosinophils% 1.3 % (0-5); Hematocrit 47.9 % (37-47); Lymphocyte # 3.18 X10^3/ul (0.83-4.51); Lymphocyte % 38.9 % (19-41); Mean Corp Hgb Conc 33.4 g/dL (32-36); Mean Corpuscular Hgb 30.9 pg (27.0-32.0); Mean Corpuscular Volume 92.6 fL (81-99); Mean Platelet Vol. 10.9 fl (6.2-12.0); Monocyte# 0.61 X10^3/uL; Monocyte% 7.5 % (0-10); NRBC Flagged by Analyzer 0 % (0-5); Neutrophil % 51.5 % (47-70); Platelet Count 231 K/mm3 (150-450); RBC Distribution Width CV 13.6 % (11.6-14.6); RBC Distribution Width SD 46.5 fl (35.1-43.9); Red Blood Count 5.17 M/mm3 (4.2-5.4); White Blood Count 8.2 K/mm3 (4.4-11.0)
[2022-09-08 14:06] LABS: Anion Gap 9 (5-15); BUN 22 mg/dL (7-18); BUN/Creat Ratio 25.7 RATIO (10-20); Calcium,Total 9.1 mg/dL (8.5-10.1); Chloride 104 mmol/L (98-107); Creatinine, Serum 0.86 mg/dL (0.55-1.02); EST Glomerular Filtration Rate 70 mL/min (>60); Est Glom Filt Rate - Afr Amer 84 mL/min (>60); Glucose 88 mg/dL (74-106); Potassium 4.2 mmol/L (3.5-5.1); Sodium Level 141 mmol/L (136-145)
[2022-09-18] VITALS (8 sets, daily range): BP systolic 96–139; BP diastolic 54–95; PULSE 51–72; RESP 12–18; TEMP 35.9–36.9; O2SAT 93–99; BMI 34.2
[2022-09-18] MEDS: Lactated Ringers 1,000 ML 15 ML IV ×2 (09:40→10:07)
[2022-09-18] MEDS: Cefazolin 2 GM in 0.9% Normal Saline 100 ML IV (10:14)
[2022-09-18] MEDS: Epinephrine (1 mg/ml) 1 MG/ML VIAL (10:44)
--- NOTE | 2022-09-18 12:42 | DCINST_ITS ---
Discharge Instructions Follow Up Care Test Results: Test results from this visit will be discussed in further detail at your follow- up appointment, if applicable. Discharge Plan Admission Primary Reason for Your Visit: Left shoulder arthroscopy Attending Provider: Albert Tabares Primary Care Provider: Anju Verde Instructions Additional Instructions / Restrictions: Follow preprinted instructions from your surgeon's office. Start Eliquis postoperative day #[address] Verde. Discharge Orders/Prescriptions Prescriptions: New oxycodone 5 mg tablet See Rx Instructions .ROUTE .COMPLEX PRN (Reason: pain) 7 Days Qty: 42 0RF Rx Instructions: 1-2 tabs by mouth every 6 hours as needed for pain No Action omeprazole 20 mg capsule,delayed release(DR/EC) 20 mg PO DAILY losartan 50 mg tablet 50 mg PO DAILY albuterol sulfate [ProAir HFA] 90 mcg/actuation HFA aerosol inhaler 2 puff inhalation Q6H PRN (Reason: Wheezing) cholecalciferol (vitamin D3) 125 mcg (5,000 unit) tablet 125 mcg PO DAILY loratadine [Claritin] 10 mg tablet 10 mg PO DAILY polyethylene glycol 3350 [Miralax] 17 gram powder in packet 17 g PO DAILY calcium carbonate 400 mg calcium (1,000 mg) tablet,chewable 400 mg PO DAILY Dulera 50-5 mcg/actuation HFA aerosol inhaler 2 puff inhalation Q12H duloxetine 30 mg capsule,delayed release(DR/EC) 30 mg PO DAILY rosuvastatin 5 mg tablet 5 mg PO DAILY mecobalamin (vitamin B12) 1,000 mcg tablet,chewable 2,500 mcg PO DAILY aspirin 81 mg Capsule 81 mg PO DAILY metoprolol succinate 50 mg tablet extended release 24 hr 50 mg PO DAILY Qty: 90 3RF montelukast 10 mg tablet 10 mg PO QPM Qty: 90 3RF Referrals / Follow Up: Anju Verde DO [Primary Care Provider] - Albert Tabares DO [Med Staff - Active Staff] - Disposition Disposition (needs filled in before D/C Order can be placed): Home, Self Care
--- NOTE | 2022-09-18 12:47 | PCM.OPRPT ---
Report of Operation Date of Procedure: 09/18/22 Description of Surgical Findings:: Preoperative diagnosis: 1. Left shoulder partial articular sided supraspinatus rotator cuff tear 2. Left shoulder subacromial impingement syndrome 3. Symptomatic left acromioclavicular arthrosis 4. Left shoulder SLAP tear type II Postoperative diagnosis: 1. Left shoulder partial articular sided supraspinatus rotator cuff tear 2. Left shoulder subacromial impingement syndrome 3. Symptomatic left acromioclavicular arthrosis 4. Left shoulder SLAP tear type II Procedure: 1. Diagnostic and operative left shoulder arthroscopy with rotator cuff repair 2. Left shoulder subacromial decompression 3. Left shoulder arthroscopic biceps tenodesis Primary Surgeon: Albert Tabares DO Bottle Hop: Atul Rocha PA-C Anesthesia: General LMA with interscalene block Anesthesiologist: Chino Franco MD Complications: None apparent Specimen: None Estimated blood loss: 25 cc IV fluids: 1 L crystalloid Urine output: None Packing/drains: None Implants: Arthrex 4.75 mm swivel lock anchor x2 Intraoperative findings: Extensive subacromial bursitis left shoulder, degenerative labral tearing with unstable biceps anchor consistent with type II SLAP tear, Downsloping acromion, greater than 50% partial articular sided supraspinatus tendon tear Preoperative indications: This is a 72-year-old female seen in the outpatient setting for left shoulder pain. She had profound weakness of his supraspinatus. MRI was obtained. MRI demonstrated partial articular sided tearing of the supraspinatus, SLAP tear. She also had symptomatic AC joint arthrosis and subacromial impingement syndrome. She failed nonoperative management form subacromial injection, oral analgesics and physical therapy. I recommended a left shoulder diagnostic and operative arthroscopy with subacromial decompression, rotator cuff repair, biceps tenodesis and distal clavicle excision. We discussed at length the risks, benefits, alternatives the procedure. Risks included but were not limited to bleeding, infection, loss of life or limb, nonhealing tendon, persistent pain, persistent weakness, stiffness, need for prolonged immobilization, prolonged therapy, DVT or PE, risk of anesthesia, neurovascular injury, need for additional surgery. Patient expressed understanding these risks and wished to proceed with surgery. Description of procedure: Patient was identified in the preoperative holding area by name, medical record number, and date of . Informed consent was confirmed with the patient. The operative extremity was marked with a surgical marker. All questions were answered to the patient's satisfaction. An interscalene block was administered prior to the procedure by the anesthesia staff. At time of her procedure, patient was brought to the operative suite and positioned supine a standard operating table. All bony prominences were well-padded. General anesthesia was induced and laryngeal mask airway placed. Patient was then placed in the lateral decubitus position with the left side up. An axillary roll was placed. Blankets were placed beneath the down leg to free the fibular head. A pillow was placed between the patient's legs. She was held in the lateral decubitus position with a beanbag. We then prepped and draped the operative upper extremity in a normal, sterile orthopedic fashion. We performed a timeout with all parties in attendance in agreement with the side, site, and operation be performed. No concerns were voiced and we elected to proceed. 2 g Ancef was administered prior to the incision by anesthesia staff. I first outlined the bony landmarks of the shoulder. I established a standard posterior portal with an 11 blade scalpel. Blunt tipped trocar in cannula was inserted into the glenohumeral joint. The joint was insufflated with normal saline solution with epinephrine in the first 2 bags. Trocar was removed and diagnostic arthroscopy was commenced. A standard anterior portal was established in the rotator interval with a spinal needle for localization. The subscapularis demonstrated partial articular sided tearing which was debrided with the radial resector. The footprint appeared intact. A posterior lever test confirmed the majority of the subscapularis tendon to be intact. The biceps demonstrated significant tenosynovitis. A peelback test of the biceps anchor revealed unstable biceps anchor consistent with a type II SLAP tear. There was approximately 60% partial articular sided tearing noted of the supraspinatus. This was tagged via spinal needle and #0 PDS suture for examination on the bursal side. I then proceeded with a biceps tenodesis. A rigid cannula was placed in the anterior portal. I proceeded with a loop and tack fixation of the biceps. A fiber link suture was passed around the biceps near its insertion and then pierced through the tendon to achieve solid fixation. A tenotomy was then performed with the radiofrequency ablator. Biceps tendon was allowed to retract into the groove. The suture tail was then passed through the eyelet of a swivel lock anchor. I selected a point high in the groove to perform tenodesis. I utilized the Arthrex punch for the swivel lock at desired location. Sutures were then tensioned and the swivel lock was placed with excellent bony fixation. Sutures were cut flush with the anchor. Glenohumeral cartilage demonstrated early grade I chondromalacia without any focal chondral defects. I then withdrew the arthroscope and cannula, reintroduced the blunt tipped trocar to the cannula and inserted into the subacromial space. I established a standard lateral portal with the assistance of a spinal needle and subsequent 11 blade scalpel. The radial resector was then introduced through the lateral portal and a subacromial bursectomy was performed as there was extensive bursitis in the subacromial space. The bursa was significantly friable and demonstrated significant bleeding throughout the procedure. A limited bursectomy was performed to avoid devascularizing the rotator cuff. The undersurface of the acromion was skeletonized with the radiofrequency ablator as well as peeling off the undersurface and attachment of the coracoacromial ligament. There was a downsloping likely type II spur off the distal portion of the acromion. This was resected utilizing the 5.5 mm bur to a flat acromion. The acromioclavicular joint capsule was then identified and the inferior portion was released with the radiofrequency ablator. I then turned our attention to the supraspinatus. Tagging suture was identified. The bursal side of the rotator cuff appeared to be frayed without brock tearing. Given the greater then 50% partial articular sided tearing I elected to proceed with a takedown of the the remaining cuff tissue which was performed with the radiofrequency ablator. I established under direct visualization a supplementary anterior superior lateral portal for suture passing. The tear was crescent in shape. I proceeded with a ripstop type single anchor lateral row repair. A fiber tape was passed utilizing the antegrade scorpion suture passer through first the anterior and then posterior limbs of the crescent tear. We then passed a fiber loop medial to the fiber tape. These were then tensioned. They were passed through the eyelet of a 4.75 mm swivel lock anchor. I then selected a point approximately 5 mm lateral to the supraspinatus footprint. The footprint was debrided with a radial resector to good bleeding bone as there was extensive sclerosis noted. The Arthrex anchor punch was then passed in appropriate depth and withdrawn. The anchor was then placed and sutures tensioned. A swivel lock was impacted and subsequently tightened to an appropriate depth with excellent, appropriate tension of the suture. The tear appeared to reapproximate to its [place] footprint very well without excessive tension. There were no identifiable dogears. I then turned my attention to the distal clavicle. During the process of the exposure of the distal clavicle there was significant bleeding. After several attempts to visualize the distal clavicle appropriately for a distal clavicle excision, adequate visualization was unable to be achieved and I felt the safest course of action to avoid risk for the patient was to not perform the distal clavicle excision. The subacromial space was then thoroughly lavaged. Arthroscopic instruments were removed. Portal sites were closed in interrupted [id number]-[id number] fashion with 4-0 nylon suture. Sterile compression dressing was applied. Patient was then placed in UltraSling. She was able to be safely extubated in the operative suite. She was transferred to his gurney and subsequently to PACU in stable condition. Need for skilled construction administrative assistant: Atul Rocha PA-C was critical to the outcome of the case. During the course of the procedure the physician construction administrative assistant played a vital role. His intimate knowledge of my steps in the procedure aided in safe and expedient completion of the procedure. The PA played a vital role in positioning particularly in obtaining the appropriate positioning. The PA was also vital in the retraction of soft tissues during the exposure and protecting vital structures. The PA was also vital and obtaining tendon reduction and assisting with hardware placement. He also played a vital role in closure and sling application with my direct supervision. Postoperative plan: Patient will be nonweightbearing to the operative extremity. She should maintain his sling at all times unless to shower. She may shower on postoperative day #2 if no significant drainage. She will follow up in approximately 2 weeks for suture removal. Given recent DVT, patient will be placed on Eliquis 2.5 mg twice daily for 2 weeks postoperatively with plan to transition to aspirin 81 mg twice daily for DVT prophylaxis. Prescription for oxycodone was sent to her pharmacy for postoperative analgesia. Plan to initiate physical therapy at 2 weeks postoperatively.
[2022-09-18] MEDS: Ipratropium/Albuterol Sulfate 3 ML AMPUL.NEB INHALATION (13:30)
[2022-09-18] MEDS: Acetaminophen 500 MG Tablet 1000 MG PO (14:44)
== END 2022-09-18 15:37 | disposition home or self-care (01) ==
LOC: SDC 09:13 → AC 09:13
PROVIDERS: PCP Internal Medicine; Referring Provider Student in an Organized Health Care Education/Training Program; Visit Provider Student in an Organized Health Care Education/Training Program
PROC: (CPT 29827; principal; 2022-09-18 10:20)
DX: M19.012 Primary osteoarthritis, left shoulder (principal); M94.20 Chondromalacia, unspecified site; M75.42 Impingement syndrome of left shoulder; I10 Essential (primary) hypertension; G47.33 Obstructive sleep apnea (adult) (pediatric); E78.5 Hyperlipidemia, unspecified; G47.30 Sleep apnea, unspecified; Z86.718 Personal history of other venous thrombosis and embolism; S46.012A Strain of muscle(s) and tendon(s) of the rotator cuff of left shoulder, initial encounter; M75.22 Bicipital tendinitis, left shoulder; E66.8 Other obesity; Z71.3 Dietary counseling and surveillance; Z68.31 Body mass index [BMI] 31.0-31.9, adult
CPT/HCPCS: 29828; 29826; 29827; 01630; 36415; 71046; 80048; 85025; 94640; C1776; J7120; J2405

== ENCOUNTER → 2022-11-25 | Outpatient (CLI) | payer MEDICARE, SELFPAY | END | disposition home or self-care (01) | LOC: SL 19:54 | PROVIDERS: PCP Internal Medicine; Visit Provider Nurse Practitioner Acute Care | DX: G47.33 Obstructive sleep apnea (adult) (pediatric) (principal) | CPT/HCPCS: 95811 ==

== ENCOUNTER → 2023-01-01 | Outpatient (CLI) | payer MEDICARE, SELFPAY | END | disposition home or self-care (01) | LOC: PSN 09:25 | PROVIDERS: PCP Internal Medicine; Referring Provider Nurse Practitioner Gerontology; Visit Provider Nurse Practitioner Gerontology | DX: R00.2 Palpitations (principal); I49.1 Atrial premature depolarization | CPT/HCPCS: 93225; 93226 ==

== ENCOUNTER → 2023-01-30 | Outpatient (CLI) | payer MEDICARE, SELFPAY ==
--- NOTE | 2023-01-30 12:56 | VDUE_ITS ---
Reason For Study: Left Arm Swelling Right Proximal Left Proximal Right subclavian vein is spontaneous, widely Left jugular vein is spontaneous, widely patent, phasic, with no intraluminal patent, phasic, with no intraluminal echogenicity noted. echogenicity noted. Left subclavian vein is spontaneous, widely patent, phasic, with no intraluminal echogenicity noted. Left Arm Left axillary vein is spontaneous, patent, phasic, competent, compressible and demonstrates augmentation. Left brachial vein is compressible. Left cephalic vein is compressible. Left basilic vein is compressible. Left Lower Arm Left radial vein is compressible. Left ulnar vein is compressible. VL/Venous Duplex US, Unilateral Interpretation Summary No evidence for acute deep venous thrombosis[left] upper extremity with patent and compressible cephalic and basilic veins. Normal flow patterns right subclavian vein Ordering Physician: Anju Verde Referring Physician: Anju Verde Performed By: Hien Ross, TINA, RVT ???
--- NOTE | 2023-01-30 12:56 | VDLE_ITS ---
Reason For Study: Left Leg Pain RIGHT LEFT CFV is compressible, spontaneous, phasic, GSV is normal. competent and demonstrates normal CFV is compressible, spontaneous, phasic, augmentation. competent, and demonstrates normal Procedure augmentation. This is a venous duplex using B-mode, color FV is compressible, spontaneous, phasic, flow and spectral Doppler. competent and demonstrates normal Exam performed in department. augmentation. A preliminary report was called and/or faxed POP V is compressible, spontaneous, phasic, to Dr. Verde. competent and demonstrates normal augmentation. T/P Trunk is compressible. PTV is compressible. LT PerV is compressible. VL/Venous Duplex US, Unilateral Interpretation Summary There is no evidence of left lower extremity deep vein thrombosis. Left great s aphenous vein appears patent and compressible segmentally. Normal flow patterns right common femoral vein Ordering Physician: Anju Verde Referring Physician: Anju Verde Performed By: Hien Ross, TINA, RVT
== END | disposition home or self-care (01) ==
LOC: CVS 12:54
PROVIDERS: PCP Internal Medicine; Referring Provider Internal Medicine; Visit Provider Internal Medicine
DX: M79.89 Other specified soft tissue disorders (principal); M79.605 Pain in left leg
CPT/HCPCS: 93971

== ENCOUNTER → 2023-02-04 | Outpatient (CLI) | payer MEDICARE, SELFPAY ==
--- NOTE | 2023-02-04 07:27 | US_ITS ---
STUDY: ABDOMINAL ULTRASOUND - RIGHT UPPER QUADRANT REASON FOR VISIT: Female, 72 years old fatty liver -- fatty liver TECHNIQUE: Ultrasound evaluation of the right upper quadrant was performed with real-time and static shelley-scale imaging. TECHNICAL QUALITY: Limited. Examination limited by bowel gas. COMPARISON: Comparison is made with prior study dated January 30, 2022. FINDINGS: Liver: The liver measures 16.2 cm. There is increased echogenicity consistent with fatty infiltration. The bile ducts are within normal limits. There is hepatic color flow. The direction of portal flow is hepatopetal. There is no demonstrated mass lesion. Gallbladder: Normal distended gallbladder. The gallbladder wall measures 3 mm. There is a negative sonographic Bravo''s sign. There is no pericholecystic fluid. There are no gallstones. Common Bile Duct (C.B.D.): The common bile duct measures 4 mm. Pancreas: Normal size of the head, body and tail of the pancreas. There is normal echogenicity of the pancreas. There is no demonstrated pancreatic mass or cyst. Right Kidney: Normal size of the right kidney. The right kidney measures 12.1 cm x 4.7 cm x 5.2 cm. Normal renal cortex. The right cortex measures 1.6 cm. There is no demonstrated renal mass or cyst. There is an extra-renal pelvis of the right kidney. There is no distention of the renal calyces. US/Abdomen Limited IMPRESSION: Fatty infiltration of the liver. Electronically Signed: Lyndon Lira MD at 10:21 EDT ,
== END | disposition home or self-care (01) ==
LOC: US 07:26
PROVIDERS: PCP Internal Medicine; Referring Provider Internal Medicine; Visit Provider Internal Medicine
DX: K76.0 Fatty (change of) liver, not elsewhere classified (principal)
CPT/HCPCS: 76705

== ENCOUNTER → 2023-02-07 | Outpatient (CLI) | payer MEDICARE, SELFPAY ==
--- NOTE | 2023-02-07 08:13 | MRI_ITS ---
STUDY: MRI BRAIN WITH AND WITHOUT CONTRAST REASON FOR EXAM: Female, 72 years old. chronic TEMPORAL headaches TECHNIQUE: Standardized multiplanar fat and water weighted pulse sequences were obtained. IV 20CC CLARISCAN was administered for the contrast portion of the examination. COMPARISON: MRI brain August 22, 2015. FINDINGS: Normal size of the ventricles and extra-axial spaces for the patient''s age. Normal white matter tracts of the supratentorial brain. Several subcentimeter scattered foci of increased T2 and FLAIR signal in the bilateral periventricular frontal lobe white matter most commonly representing chronic small vessel ischemic changes, unchanged compared to prior exam There is no evidence for recent intracranial ischemia or other cause of cytotoxic edema on diffusion weighted imaging (DWI). Normal T2* images of the brain without demonstrated susceptibility artifact. There is no demonstrated hemosiderin stain. Normal bilateral basal ganglia. Normal thalami. There is no extra-axial fluid accumulation. Normal flow voids within the major intracranial circulation suggesting patency by spin echo criteria. Note of dominant left vertebral artery Normal venous enhancement. There is no enhancing intra-axial or extra-axial abnormality. Normal vascular and meningeal enhancement. Partially empty sella unchanged in appearance. Infundibular stalk is otherwise normal in appearance. Normal optic chiasm. Normal tectal plate and pineal gland. Small amount of increased fluid in the optic nerve sheaths and mild kinking morphology. Normal midbrain, gemini and medulla. Normal cerebellum. Normal basal cisterns. Normal bilateral internal auditory canals and cerebellar pontine angles. Normal visualized paranasal sinuses. Normal calvarium and skull base. Normal visualized upper cervical spine. MRI/Brain W/WO Contrast IMPRESSION: Mild chronic small vessel ischemic changes unchanged compared to prior exam. Partially empty sella, mild kinking and increased fluid in the optic nerve sheaths are nonspecific findings potentially with idiopathic intracranial hypertension, usually seen much younger patients. Correlate clinically and consider ophthalmic exam. Electronically Signed: Murali Saab DO at 23:03 EDT ,
== END | disposition home or self-care (01) ==
LOC: MRI 07:57
PROVIDERS: PCP Internal Medicine; Referring Provider Internal Medicine; Visit Provider Internal Medicine
DX: R51.9 Headache, unspecified (principal)
CPT/HCPCS: 70553; A9575

== ENCOUNTER → 2023-03-02 | Outpatient (CLI) | payer MEDICARE, SELFPAY ==
--- NOTE | 2023-03-02 14:10 | CT_ITS ---
EXAM: CT CHEST WITH INTRAVENOUS CONTRAST CLINICAL INDICATION: Thoracic aortic aneurysm TECHNIQUE: Helically acquired images were obtained of the chest with intravenous contrast. This CT exam was performed using one or more of the following dose reduction techniques: automated exposure control, adjustment of the mA and/or kV according to patient size, and/or use of iterative reconstruction technique. CONTRAST: IV 100mL Isovue-300 RADIATION DOSE: CTDIvol = 16.18 mGy, DLP = 574.98 mGy-cm. COMPARISON: No relevant prior studies available. FINDINGS: LUNGS AND PLEURAL SPACES: Unremarkable. No mass. No consolidation or edema. No pleural effusion or thickening. No pneumothorax. HEART: Moderate calcifications of left anterior descending coronary artery. No intracardiac filling defect. Heart size is normal. No pericardial effusion. MEDIASTINUM: Unremarkable. No mediastinal or hilar adenopathy. Esophagus is unremarkable. No hiatal hernia. THYROID: Unremarkable. No thyroid lesions. BONES/JOINTS: Unremarkable. No suspicious lytic or blastic abnormality. VASCULATURE: Mild calcifications of aorta, no aortic dissection. Ascending aorta is 4.7 cm, mildly dilated but nonaneurysmal. Descending thoracic aorta is 3.2 cm proximally, slightly aneurysmal, and 2.6 cm distally. Infrarenal aorta is not fully included. UPPER ABDOMEN: Partially included is a duodenal diverticulum in typical location. There is moderate fluid and gas in the hepatic and splenic flexures. Unremarkable gallbladder, common duct and included portion of the pancreas, adrenals, upper poles of the kidneys. CT/Chest WITH Contrast IMPRESSION: Mild aortic aneurysm. No dissection. No PE. Coronary artery calcifications. Electronically Signed: Karla Malagon MD at 9:04 EDT ,
== END | disposition home or self-care (01) ==
LOC: CT 13:50
PROVIDERS: PCP Internal Medicine; Referring Provider Internal Medicine; Visit Provider Internal Medicine
DX: I71.20 Thoracic aortic aneurysm, without rupture, unspecified (principal)
CPT/HCPCS: 71260; Q9967

== ENCOUNTER → 2023-03-26 | Outpatient (CLI) | payer MEDICARE, SELFPAY ==
--- NOTE | 2023-03-30 16:21 | STRESSREP ---
Stress Test Report Exercise myocardial perfusion stress test. 72-year-old lady with a history of an elevated calcium score and chest pressure Stress protocol: Resting EKG demonstrates normal sinus rhythm with a rate of 63 bpm resting blood pressure is 138/82 mmHg. The patient exercised according to the regular Robson protocol for a total duration of 3 minutes and 31 seconds attaining a maximum heart rate of 180 bpm with a rhythm suggestive of supraventricular tachycardia. This was over 100% of maximum predicted heart rate; the maximum workload was 5.8 metabolic equivalents. At rest there were no ST or T wave changes noted to suggest ischemia and at peak exercise upsloping ST changes only were noted which did not meet the criteria for ischemia. No clinical angina was noted the test was terminated due to the target heart rate being achieved/fatigue. The peak blood pressure was 180/96 mmHg. Rate-pressure product was 25,200. Myocardial perfusion protocol. 14.3 mCi of technetium 99m sestamibi was injected at rest. The patient exercised according to regular Robson protocol for total duration of 3 minutes and 31 seconds and at peak exercise 44.5 mCi of technetium 99m sestamibi was injected stress images were obtained stress and rest images were reconstructed in comparing the short axis vertical long and horizontal long axis. Gated images were also obtained. Perfusion SPECT analysis: Review of the stress images demonstrate normal uptake of tracer noted in all areas of the myocardium. The resting images similarly demonstrate normal uptake of tracer noted in all areas of the myocardium. No areas of reversibility are noted to suggest ischemia no previous infarct was noted. Gated SPECT analysis: The gated ejection fraction is 62%. Conclusion: Normal exercise myocardial perfusion stress test at a low to moderate workload Preserved ejection fraction. Supraventricular tachyarrhythmia noted spontaneously converting
== END | disposition home or self-care (01) ==
PROVIDERS: PCP Internal Medicine; Referring Provider Nurse Practitioner Gerontology; Visit Provider Nurse Practitioner Gerontology
DX: R93.1 Abnormal findings on diagnostic imaging of heart and coronary circulation (principal); I49.3 Ventricular premature depolarization; R07.89 Other chest pain
CPT/HCPCS: 78452; 93017; A9500; A4216

== ENCOUNTER → 2023-03-31 | Outpatient (CLI) | payer MEDICARE, SELFPAY ==
--- NOTE | 2023-03-31 13:07 | PFTCOMP ---
COMPLETE PULMONARY FUNCTION TEST INTERPRETATION Brief HPI: Patient is a 72-year-old female, currently under the care of Heather Navarro, who presents to [facility] for complete pulmonary function tests secondary to diagnosis of asthma. Respiratory therapist reports good effort and reproducible results. Interpretation: Forced expiration spirometry shows no large airways obstructive ventilatory defect with an FEV1 of 118% predicted. There is no significant bronchodilator response by strict ATS criteria. Spirograms are of good quality and plateau normally. The respiratory flow volume loop shows a normal pattern. Lung volumes by body plethysmography show a slightly elevated total lung capacity at 5.91 L, 105% predicted. All other lung volumes are within normal limits. Diffusion capacity by carbon monoxide is normal at 89% predicted. The airway resistance is normal. No previous pulmonary function tests were available for review. Impression: These pulmonary function tests are within normal limits
== END | disposition home or self-care (01) ==
LOC: PSN 09:26
PROVIDERS: PCP Internal Medicine; Referring Provider Nurse Practitioner Acute Care; Visit Provider Nurse Practitioner Acute Care
DX: J45.909 Unspecified asthma, uncomplicated (principal)
CPT/HCPCS: 94060; 94726; 94729

== ENCOUNTER → 2023-04-02 | Outpatient (CLI) | payer MEDICARE, SELFPAY ==
--- NOTE | 2023-04-02 10:37 | RAD_ITS ---
STUDY: X-RAY CHEST REASON FOR EXAM: Female, 72 years old. Preoperative evaluation for cardiac catheterization TECHNIQUE: Frontal and lateral views of the chest. COMPARISON: Chest dated August 2022. FINDINGS: Cardiomegaly, aortic tortuosity with calcification, mild hyperinflation and diffuse moderate thoracic spondylosis, unchanged. No active or acute cardiopulmonary disease. No abnormality of the visualized soft tissue structures of the upper abdomen. RAD/Chest PA and Lateral IMPRESSION: Stable chest with no acute or active cardiopulmonary disease. Electronically Signed: Dante Gomes MD at 12:49 EDT ,
[2023-04-02 10:42] LABS: Absolute Lymphocyte Count 2.41 X10^3/uL (0.83-4.51); Absolute Neutrophil Count 2.6 X10^3/uL (2.0-7.7); Basophil# 0.02 X10^3/uL; Basophil% 0.3 % (0-1); Eosinophil# 0.16 X10^3/uL; Eosinophils% 2.8 % (0-5); Hematocrit 40.1 % (37-47); Hemoglobin 12.7 g/dL (12.0-15.0); Lymphocyte # 2.41 X10^3/ul (0.83-4.51); Lymphocyte % 41.8 % (19-41); Mean Corp Hgb Conc 31.7 g/dL (32-36); Mean Corpuscular Hgb 27.9 pg (27.0-32.0); Mean Corpuscular Volume 87.9 fL (81-99); Mean Platelet Vol. 10.3 fl (6.2-12.0); Monocyte# 0.54 X10^3/uL; Monocyte% 9.4 % (0-10); NRBC Flagged by Analyzer 0 % (0-5); Neutrophil # 2.64 X10^3/uL (2.7-7.7); Neutrophil % 45.7 % (47-70); Platelet Count 200 K/mm3 (150-450); RBC Distribution Width CV 12.6 % (11.6-14.6); RBC Distribution Width SD 40.2 fl (35.1-43.9); Red Blood Count 4.56 M/mm3 (4.2-5.4); White Blood Count 5.8 K/mm3 (4.4-11.0)
[2023-04-02 11:08] VITALS: PULSE 82; PULSE 86; PULSE 88; PULSE 89; PULSE 91; PULSE 93; PULSE 95; O2SAT 92; O2SAT 93; O2SAT 95; O2SAT 96; O2SAT 97; O2SAT 98
[2023-04-02 11:16] LABS: Anion Gap 4 (5-15); BUN 18 mg/dL (7-18); BUN/Creat Ratio 19.8 RATIO (10-20); Calcium,Total 9.4 mg/dL (8.5-10.1); Chloride 108 mmol/L (98-107); Creatinine, Serum 0.91 mg/dL (0.55-1.02); EST Glomerular Filtration Rate 65 mL/min (>60); Est Glom Filt Rate - Afr Amer 79 mL/min (>60); Estimated Creatinine Clearance 58.03 ml/min; Glucose 107 mg/dL (74-106); Potassium 3.9 mmol/L (3.5-5.1); Sodium Level 141 mmol/L (136-145)
--- NOTE | 2023-04-03 05:43 | WT_ITS ---
PSN 6 Minute Walk Test 6 Minute Walk Test 6 Minute Walk Test: 6 Minute Walk Test PSN:6-Minute Walk Test Start: 04/02/23 11:08 Freq: Status: Active Protocol: RESP.6MINW Document 04/02/23 11:08 [facility] (Rec: 04/02/23 11:13 [facility] [id number]) 6 Minute Walk Test Date Performed 04/02/23 Time Performed 11:00 Height 5 ft 8 in Weight: 96.162 kg Weight in Pounds 212.[address]: SHALINI Epps Assistive device used: None Pre-test Oxygen Delivery Method Room Air Pulse Ox 97 Pulse Rate (60-100) 86 Dyspnea Devang Scale (0-10) 0 Exertion Devang Scale (6-20) 6 1st minute Oxygen Delivery Method Room Air Pulse Ox 96 Pulse Rate (60-100) 88 2nd minute Oxygen Delivery Method Room Air Pulse Ox 93 Pulse Rate (60-100) 95 3rd minute Oxygen Delivery Method Room Air Pulse Ox 92 Pulse Rate (60-100) 93 4th minute Oxygen Delivery Method Room Air Pulse Ox 96 Pulse Rate (60-100) 89 5th minute Oxygen Delivery Method Room Air Pulse Ox 93 Pulse Rate (60-100) 91 6th minute Oxygen Delivery Method Room Air Pulse Ox 95 Pulse Rate (60-100) 91 Dyspnea Devang Scale (0-10) 0.5 Exertion Devang Scale (6-20) 8 Post-test Oxygen Delivery Method Room Air Pulse Ox 98 Pulse Rate (60-100) 82 Full Laps Walked 24 Partial Lap, Number of Tiles Walked 0 Total Distance Walked (ft) 1416 Interpretation Interpretation: Patient was able to ambulate 1416 feet over the course of 6 minutes on room air with no assistive devices or breaks. The patient did experience significant desaturation from a baseline of 97% to as low as 92%. No significant tachyc ardia was noted. These findings are consistent with a respiratory limitation exercise tolerance. Recommendations Recommendations: No supplemental oxygen is indicated at this time, but may need to watch patient closely given level of desaturation.
== END | disposition home or self-care (01) ==
LOC: PSN 10:26
PROVIDERS: Nurse Practitioner Gerontology; PCP Internal Medicine; Referring Provider Nurse Practitioner Acute Care; Visit Provider Nurse Practitioner Acute Care
DX: J45.909 Unspecified asthma, uncomplicated (principal); R06.09 Other forms of dyspnea; R53.83 Other fatigue; R07.89 Other chest pain; R93.1 Abnormal findings on diagnostic imaging of heart and coronary circulation
CPT/HCPCS: 36415; 71046; 80048; 85025; 94618

== ENCOUNTER 2023-04-07 06:58 | Day surgery (SDC) | payer MEDICARE, SELFPAY ==
--- NOTE | 2023-04-02 16:47 | PCM.HP.BLA ---
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 She recently underwent a coronary calcium score which demonstrated an elevated score of 398 in her LAD, and 205 in her RCA. Her stress test from 03/30/2023 was normal at a low to moderate workload. During her stress test she did have supraventricular tachyarrhythmia noted to spontaneously convert. She has a history of palpitations and subsequent findings of underlying cardiac ectopy with PACs/PVCs superimposed upon a history of hyperlipidemia and hypertension. As you recall, she presented to the [facility] emergency department on 02-04-21 for concerns of palpitations and chest discomfort. She had already undergone further cardiovascular evaluation as an outpatient which included a transthoracic echocardiogram (noted below) and a Holter monitor which demonstrated sinus rhythm with PACs and episodes appearing compatible with ectopic atrial rhythm/tachycardia as well as rare PVCs. She was initiated on medical therapy with a beta-rosalinda. She underwent laboratory studies and ECG follow-up in the emergency department. Her troponin I levels were negative. Her ECG was reported as demonstrating sinus rhythm with PACs in a pattern of atrial bigeminy. From a cardiac standpoint, the patient is doing well. She does have an occasional palpitation, along with occasional chest tightness. She states that this occurs usually with palpitations/increased heart rate. She denies chest pain. She does have SOB-this is worsening. She denies Orthopnea, and PND. She does not have bleeding issues; no blood in urine, stool or nosebleeds. She does acknowledge fatigue-she is following with pulmonology for possible central sleep apnea. She denies myalgias, or claudication. She does not have edema, or sudden weight gain. She does have an occasional lightheadedness. She denies dizziness, syncopal or near syncopal episodes, and headaches. Intake Vital Signs See EMR Allergies See EMR Medications See EMR COUNT INCLUDES THE [facility] Medical History Anemia Arthritis Asthma Back pain Cardiology follow-up encounter CPAP (continuous positive airway pressure) dependence DVT (deep venous thrombosis) Essential hypertension Fatty liver Gastric reflux GERD (gastroesophageal reflux disease) History of echocardiogram History of migraine headaches History of stress test Hyperlipidemia Hypertension IBS (irritable bowel syndrome) Non-smoker Osteoarthritis Osteopenia Premature atrial contraction Wears glasses Surgical History History of partial hysterectomy History of tonsillectomy Family History Mother Hypertension CVA (cerebral vascular accident) AsthmaFather CKD (chronic kidney disease)Brother Crohn's diseaseBrother , Age 57 Myocardial infarctionSon Cancer lymphoma Social History Smoking Status: Never smoker alcohol intake: never substance use type: does not use caffeine: No ROS Const Const: Positive for fatigue (being worked up for central sleep apnea); Negative for weakness, fever(s), headache(s), chills, frequent falls, weight gain or weight loss Eyes Eyes: Negative for blind spots, loss of peripheral vision, transient loss of vision, blurry vision, change in vision, double vision, floaters or tunnel vision ENT ENT: Negative for headache(s), dizziness, Nosebleed/epistaxis, balance problems or neck pain Cardio Chest Pain: No Palpitations: Yes (along with chest tightness) feels like its: fast Edema: None Muscle aches with walking: None Resp Respiratory: Positive for SOB with activity (worsening); Negative for SOB at rest or SOB orthopnea\SOB lying down GI GI: Negative nausea, vomiting, heartburn, bloating, vomiting blood/hematemesis, bright, red blood in stools or black,tarry stools Musc Musc: Negative for muscle aches/ myalgia, muscle weakness, joint pain or balance problems Neuro Neuro: Positive for lightheadedness (occasional); Negative for dizziness, near syncope, syncope, orthostatic symptoms, frequent falls, headache(s), weakness, blurry vision or double vision Vlad Hematologic/Lymphatic: Negative for easy bleeding or easy bruising Endo Endo: Positive for fatigue (being worked up for central sleep apnea) Cardiology Exam Const Appearance: cooperative, healthy appearing, comfortable, no acute distress, well developed and well groomed Nutritional Appearance: obese Orientation: alert, awake and oriented x3 Head Head: normal to inspection, normocephalic and atraumatic Ears: hearing grossly normal bilaterally Nose: external nose normal Face and Sinus: face symmetric Eyes Eyelids: eyelids normal Conjunctivae: conjunctivae normal Pupils: PERRL and pupil size EOM: EOM intact bilaterally Neck Neck: normal visual inspection and full ROM Carotids: Negative bruit Chest Chest inspection: normal inspection of the chest, symmetric chest movement and normal respiratory effort Auscultation: Bilateral: Clear to Auscultation Cardio Palpation: normal PMI Rate: regular rate Rhythm: regular rhythm and ectopic beats Heart sounds: S1 normal and S2 normal; Negative rub, gallop or murmur GI GI: normal to inspection, soft, bowel sounds present and obese Neuro General: patient alert, patient oriented x3 and moves all extremities Skin Skin: no rashes or lesions noted Extremities Pulses: Normal: Right Posterior Tibial Pulse, Left Posterior Tibial Pulse, Right Radial Pulse and Left Radial Pulse Lower Extremity Edema: None: Bilateral Psych Psychological: normal affect Supplemental Info Supplemental Information Stress Test 03/30/2023: Exercise myocardial perfusion stress test. 72-year-old lady with a history of an elevated calcium score and chest pressure Stress protocol: Resting EKG demonstrates normal sinus rhythm with a rate of 63 bpm resting blood pressure is 138/82 mmHg. The patient exercised according to the regular Robson protocol for a total duration of 3 minutes and 31 seconds attaining a maximum heart rate of 180 bpm with a rhythm suggestive of supraventricular tachycardia. This was over 100% of maximum predicted heart rate; the maximum workload was 5.8 metabolic equivalents. At rest there were no ST or T wave changes noted to suggest ischemia and at peak exercise upsloping ST changes only were noted which did not meet the criteria for ischemia. No clinical angina was noted the test was terminated due to the target heart rate being achieved/fatigue. The peak blood pressure was 180/96 mmHg. Rate-pressure product was 25,200. Myocardial perfusion protocol. 14.3 mCi of technetium 99m sestamibi was injected at rest. The patient exercised according to regular Robson protocol for total duration of 3 minutes and 31 seconds and at peak exercise 44.5 mCi of technetium 99m sestamibi was injected stress images were obtained stress and rest images were reconstructed in comparing the short axis vertical long and horizontal long axis. Gated images were also obtained. Perfusion SPECT analysis: Review of the stress images demonstrate normal uptake of tracer noted in all areas of the myocardium. The resting images similarly demonstrate normal uptake of tracer noted in all areas of the myocardium. No areas of reversibility are noted to suggest ischemia no previous infarct was noted. Gated SPECT analysis: The gated ejection fraction is 62%. Conclusion: Normal exercise myocardial perfusion stress test at a low to moderate workload Preserved ejection fraction. Supraventricular tachyarrhythmia noted spontaneously converting Transthoracic echocardiogram: 02-01-2021 Interpretation Summary The study was technically difficult. Left ventricular systolic function is normal. The estimated ejection fraction is 60 %. The left atrium is mildly enlarged. Mild-Moderate (1-2+) mitral valve insufficiency. Trivial tricuspid valve insufficiency. Mild focal aortic valve calcification. Mild (1+) aortic valve insufficiency. Trivial pulmonic valve insufficiency. Right ventricular systolic pressure estimated to be 17 mmHg. Diastolic function is indeterminate. Bubble contrast study negative for right to left interatrial shunt. Stress Test Report Date: 03-07-2021 Procedure: Exercise tolerance test/imaging study Indications: Chest pain; shortness of breath/dyspnea on exertion Consent: Per the patient Procedure: The patient exercised on a Robson protocol for 4 minutes and 41 completing Stage I and 1 minute and 41 seconds of Stage II achieving a peak heart rate of 164 bpm (107% predicted maximal heart rate) with a peak blood pressure 184/105 mmHg and a peak MET capacity of 6 METs. The baseline ECG demonstrated sinus rhythm. The peak exercise ECG demonstrated no obvious ECG changes. There was a rare PAC pretest and an occasional PAC/repetitive PAC in recovery. The functional capacity was considered decreased. There was chest discomfort/pressure and shortness of breath at peak exercise with subsequent spontaneous resolution in recovery. The examination was discontinued secondary to chest discomfort and shortness of breath/dyspnea. Impression: 1. Technically adequate (percent predicted maximal heart rate greater than 85%) exercise tolerance test 2. Peak exercise ECG with no obvious ECG changes 3. There was a rare PAC pretest and an occasional PAC/repetitive PAC in recovery 4. Normal resting blood pressure-hypertensive response to exercise 4. Nuclear images pending Myocardial perfusion imaging study: Technique: The patient was injected with 10.0 mCi of technetium 99m Cardiolite and subsequently rest SPECT Cardiolite nuclear imaging was obtained in the horizontal long, vertical long, and short axis views. he patient exercised on a Robson protocol for 4 minutes and 41 completing Stage I and 1 minute and 41 seconds of Stage II achieving a peak heart rate of 164 bpm (107% predicted maximal heart rate) with a peak blood pressure 184/105 mmHg and a peak MET capacity of 6 METs. The patient was injected with 33.0 mCi of technetium 99m Cardiolite and subsequently stress SPECT Cardiolite nuclear imaging was obtained in the horizontal long, vertical long, and short axis views. A gated Cardiolite study at peak stress was obtained. Interpretation: Rest and stress SPECT Cardiolite nuclear imaging status post realignment, normalization, and attenuation correction, demonstrates the appearance of relative uniform tracer uptake and myocardial perfusion appearing within normal limits. There is end systolic thickening and brightening. The gated Cardiolite study demonstrates myocardial thickening and inward wall motion. The reported LVEF is 67%. Impression: 1. Rest and stress SPECT Cardiolite nuclear imaging demonstrate relative uniform tracer uptake and myocardial perfusion appearing within normal limits. 2. The gated Cardiolite study reports an LVEF of 67%. Holter monitor: 07-02-2021 Sinus rhythm PACs Brief atrial runs No ventricular ectopy reported Assessment and Plan Assessment and Plan (1) Dyspnea on exertion: Status: Acute Plan: Patient acknowledges dyspnea on exertion. Her coronary calcium score demonstrated an elevated score of 398 in her LAD, and 205 in her RCA. Her stress test from 03/30/2023 was normal at a low to moderate workload. She will proceed with a cardiac catheterization to further assess her dyspnea on exertion. Depending on results, further recommendations will be made. (2) Chest tightness: Status: Acute Plan: Patient acknowledges chest tightness. Her stress test from 03/30/2023 was normal at a low to moderate workload. During her stress test she did have supraventricular tachyarrhythmia noted to spontaneously convert. She will proceed with a cardiac catheterization to further assess this. (3) Abnormal coronary calcium score: Status: Acute Plan: Patients recent coronary calcium score demonstrated an elevated score of 398 in her LAD, and 205 in her RCA. She will proceed with a cardiac catheterization to further assess this. Depending on results, further recommendations will be made.
[2023-04-06 10:30] VITALS: BMI 33.1
--- NOTE | 2023-04-13 07:40 | CL.D_ITS ---
Patient Name: MONTSERRAT CRAMER Study Date: 04/07/2023 Performing: Srinivas Vasquez MD Ht: 68 inches 172.72 cm : 1950 Wt: 217.99 lbs 98.88 kg Age: 72 Gender: female BSA: 2.12 PROCEDURE(S) PERFORMED DC01-([id number])LHC/COR/LV CLINICAL PROFILE AND INDICATIONS Indications: Suspected CAD Heart Failure: None Stress/Imaging Date: 03/22/23Stress Test with SPECT MPI: Indeterminant CAD Presentations: Stable angina. 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 The risks and benefits of the procedure as well as a full description of our services here and current unavailability of surgical backup were fully explained to the patient and/or their significant other prior to the catheterization. The Timeout was completed, verifying the correct patient and procedure. The patient's procedural site was prepped and draped in the usual fashion. Local anesthetic was given subcutaneously to right radial region with Lidocaine 2%. Using a modified Seldinger technique, arterial access was obtained via the right radial artery, a 6Fr sheath was inserted. Left Coronary Artery selective angiography was performed in multiple views using a 5 Fr. 4.0 [place] catheter. Right Coronary Artery selective angiography was then performed in multiple views using a 5 Fr. 4.0 [place] catheter. Left Ventriculography was performed in GARCIA projection using a 5 Fr. Pigtail catheter. LV to AO pullback pressures were then recorded.The arterial sheath was pulled and a TR Band was applied for hemostasis. 10cc air inserted. CORONARY ANGIOGRAPHY DOMINANCE: Right Dominant LEFT HEART ASSESSMENT Left Ventricular Ejection Fraction: by LV Gram 60 % Normal LV wall motion Normal Left Ventricular systolic function LEFT MAIN: Angiographically normal LEFT ANTERIOR DESCENDING ARTERY: Medium size vessel with ectatic and aneurysmal mid segments with mild luminal irregularities no high-grade stenosis present. CIRCUMFLEX ARTERY: Mild luminal irregularities less than 30% RIGHT CORONARY ARTERY: Mild luminal irregularities less than 30% AORTIC ROOT: Dilated COMPLICATIONS No Complications PROCEDURE MEDICATIONS Fentanyl 50 mcg IV Versed 1 mg IV Oxygen: 2 L/min via nasal cannula Benadryl 50 mg IV @ 04/07/2023 09:00:09 Heparin given IA 04/07/2023 08:29:17 Verapamil 2.5mg, Ntg 100mcgs, 3000 units of Heparin given IA 04/07/2023 08:29:17 SUMMARY OF HEMODYNAMIC DATA Time AIR REST ECG 07:21:51 AO 139/74 (103) SA 08:36:22 LV 155/4, 8 08:45:24 LV 169/7, 9 08:45:32 LV 146/8, 16 08:46:23 LVp 149/8, 17 08:46:26 AOp 0/0 (82) 08:46:33 Signed By Srinivas Vasquez MD On 04/13/2023 07:39:46 Srinivas Vasquez MD
== END 2023-04-07 10:35 | disposition home or self-care (01) ==
PROVIDERS: PCP Internal Medicine; Referring Provider Internal Medicine Cardiovascular Disease; Visit Provider Internal Medicine Cardiovascular Disease
DX: I47.1 Supraventricular tachycardia (principal); I77.819 Aortic ectasia, unspecified site; I20.9 Angina pectoris, unspecified; E78.5 Hyperlipidemia, unspecified; I10 Essential (primary) hypertension; R06.00 Dyspnea, unspecified; R07.89 Other chest pain; Z82.49 Family history of ischemic heart disease and other diseases of the circulatory system
CPT/HCPCS: 93458; 99152; 99153; J7040; Q9967; C1769; C1894

== ENCOUNTER → 2023-04-28 | Outpatient (CLI) | payer MEDICARE, SELFPAY ==
[2023-04-28] MEDS: Zolpidem Tartrate 5 MG Tablet PO (21:24)
== END | disposition home or self-care (01) ==
LOC: SL 20:00
PROVIDERS: PCP Internal Medicine; Referring Provider Internal Medicine Critical Care Medicine; Visit Provider Internal Medicine Critical Care Medicine
DX: G47.33 Obstructive sleep apnea (adult) (pediatric) (principal)
CPT/HCPCS: 95811

== ENCOUNTER → 2023-05-15 | Outpatient (CLI) | payer MEDICARE, SELFPAY ==
--- NOTE | 2023-05-15 10:08 | CDU_ITS ---
Reason For Study: DIZZINESS Rt. Velocities/BP Lt. Velocities/BP Prox CCA 76.4/8.4 cm/sec. Prox CCA 61.8/13.0 cm/sec. Mid CCA 48.1/4.6 cm/sec. Mid CCA 65.3/16.5 cm/sec. Dist CCA 48.3/8.5 cm/sec. Dist CCA 56.6/13.0 cm/sec. Prox ICA 36.2/7.8 cm/sec. Prox ICA 47.9/15.6 cm/sec. Mid ICA 49.0/14.9 cm/sec. Mid ICA 57.5/15.6 cm/sec. Dist ICA 49.5/13.5 cm/sec. Dist ICA 46.4/15.2 cm/sec. Rt. ICA/CCA = 49.5/48.1=1.0. Lt. ICA/CCA = 57.5/65.3=0.9. Prox ECA 57.6/4.2 cm/sec. Prox ECA 48.8/6.9 cm/sec. Rt. Vert. 33.3/7.2 cm/sec. Lt. Vert. 61.3/16.0 cm/sec. Right Extracranial There is intimal thickening but no significant atherosclerotic plaque noted in the right common carotid artery. There is heterogeneous, irregular atherosclerotic plaque noted in the right internal carotid artery. There is intimal thickening but no significant atherosclerotic plaque noted in the right external carotid artery. Antegrade flow is noted in the right vertebral artery. Left Extracranial There is intimal thickening but no significant atherosclerotic plaque noted in the left common carotid artery. There is intimal thickening but no significant atherosclerotic plaque noted in the left internal carotid artery. There is no significant atherosclerotic plaque noted in the left external carotid artery. Antegrade flow is noted in the left vertebral artery. Procedure Carotid Duplex [id number]. This is a Carotid Duplex examination using B-mode, color flow and specral Doppler. Exam performed in department. VL/Carotid Duplex Ultrasound Interpretation Summary Mild (<50%) stenosis right extracranial internal carotid. Normal left extracranial internal carotid. Patent and antegrade vertebrals bilaterally. Ordering Physician: Anju Verde Referring Physician: Anju Verde Performed By: Marleni Vo, TINA, RVT
== END | disposition home or self-care (01) ==
LOC: CVS 10:07
PROVIDERS: PCP Internal Medicine; Referring Provider Internal Medicine; Visit Provider Internal Medicine
DX: R42 Dizziness and giddiness (principal)
CPT/HCPCS: 93880

== ENCOUNTER → 2023-05-18 | Outpatient (CLI) | payer MEDICARE, SELFPAY ==
--- NOTE | 2023-05-18 14:14 | BI_ITS ---
MAMMOGRAPHY - UNILATERAL DIAGNOSTIC: LEFT BREAST REASON FOR EXAM: Female, 72 years old. Prior left rotator cuff surgery and continued left axillary pain. PERTINENT HISTORY: Non-contributory. Chronic bilateral nipple inversion. TECHNIQUE: Digital unilateral breast dajuan (3D mammographic acquisition) in the CC and MLO projections. 2-D mediolateral oblique (MLO) and craniocaudad (CC) views of both breasts were obtained. CAD: Full Field Digital Mammography with Computer Added Detection was performed. COMPARISON: Comparison is made with prior study dated September 17, 2022 and July 23, 2021. FINDINGS: Breast Composition: There are scattered areas of fibroglandular density. There are no dominant masses or suspicious calcifications. Stable small left axillary nodes. A tissue clip marker is once again seen in the tibial portion of the left breast. No other significant abnormalities are identified. There has been no significant change since the prior study. BI/DIAG MAMM W/CAD, UNILAT IMPRESSION: Stable unilateral diagnostic mammogram. One year follow-up mammogram recommended. (A) ASSESSMENT CATEGORY: BIRADS Category 2: Benign. A letter regarding these results will be sent to the patient by the facility within 30 days. Approximately 10% of breast cancers are not detected by mammography. A normal mammogram should not delay biopsy of a clinically suspicious abnormality. Electronically Signed: Lyndon Lira MD at 15:31 EDT ,
== END | disposition home or self-care (01) ==
PROVIDERS: PCP Internal Medicine; Referring Provider Internal Medicine; Visit Provider Internal Medicine
DX: R42 Dizziness and giddiness (principal); N63.23 Unspecified lump in the left breast, lower outer quadrant
CPT/HCPCS: 77061; 77065; G0279

== ENCOUNTER 2023-06-17 07:24 | Day surgery (SDC) | payer MEDICARE, SELFPAY ==
[2023-06-17 07:38] VITALS: BP 133/76; PULSE 93; RESP 18; TEMP 36.4; O2SAT 96; BMI 33.2
[2023-06-17] MEDS: Lactated Ringers 1,000 ML 15 ML IV (07:46)
--- NOTE | 2023-06-17 08:08 | HP.PCM_ITS ---
[facility] - General General Date of Admission: 06/17/23 Date of Service: 06/17/23 Chief Complaint: Screening colonoscopy HPI Lyn CRAMER, is a 72 F who presents today for screening colonoscopy. She does not have any abdominal pain. She denies any cramping. She denies any chest pain or shortness of breath. She had a colonoscopy approximately 15 years ago was normal. She had an attempted colonoscopy 5 years ago but that was unsuccessful so she had a barium enema and that was normal. She had a Cologuard 5 years ago and it was normal. She arrives here for screening colonoscopy. [facility] Medical History (Updated 06/11/23 @ 12:23 by Inez Scruggs) Anemia Arthritis Asthma Back pain Cardiology follow-up encounter CPAP (continuous positive airway pressure) dependence DVT (deep venous thrombosis) Essential hypertension Fatty liver Gastric reflux GERD (gastroesophageal reflux disease) History of echocardiogram History of Holter monitoring History of migraine headaches History of steroid therapy History of stress test Hyperlipidemia Hypertension IBS (irritable bowel syndrome) Lightheaded Non-smoker Osteoarthritis Osteopenia Premature atrial contraction Tinnitus Wears glasses Home Medications albuterol sulfate 90 mcg/actuation aerosol inhaler (ProAir HFA) 2 puff inhalation Q6H PRN Wheezing 03/12/21 [History Last Taken 09/18/22] calcium carbonate 400 mg calcium (1,000 mg) chewable tablet 400 mg PO DAILY 03/12/21 [History Last Taken 09/17/22] cholecalciferol (vitamin D3) 125 mcg (5,000 unit) tablet 125 mcg PO DAILY 0 03/12/21 [History Last Taken 09/17/22] losartan 50 mg tablet 50 mg PO DAILY 03/12/21 [History Last Taken 06/17/23] omeprazole 20 mg capsule,delayed release 20 mg PO DAILY 03/12/21 [History Last Taken 06/17/23] polyethylene glycol 3350 17 gram oral powder packet (Miralax) 17 g PO DAILY 03/12/21 [History Last Taken 09/17/22] rosuvastatin 5 mg tablet 5 mg PO DAILY 01/17/22 [History Last Taken 09/17/22] aspirin 81 mg capsule 81 mg PO DAILY 09/05/22 [History Last Taken 06/13/23] montelukast 10 mg tablet 10 mg PO QPM #90 tabs 10/09/22 [Rx Last Taken Unknown] zinc gluconate 30 mg tablet 30 mg PO DAILY 04/16/23 [History Last Taken Unknown] metoprolol succinate 50 mg tablet,extended release 24 hr 25 mg PO BID 04/20/23 [History Last Taken 06/17/23] Allergy/AdvReac Type Severity Reaction Status Date / Time clarithromycin [From Biaxin] Allergy Rapid Verified 06/17/23 07:37 heart rate simvastatin Allergy Pain in Verified 06/17/23 07:37 joints Family History Mother Hypertension CVA (cerebral vascular accident) Asthma Father CKD (chronic kidney disease) Colon polyps Brother Crohn's disease Brother , Age 57 Myocardial infarction Son Cancer lymphoma Surgical History History of partial hysterectomy History of tonsillectomy Hx of cardiac catheterization Hx of colonoscopy Social History Smoking Status: Never smoker alcohol intake: never substance use type: does not use caffeine: No ROS Review of Systems ROS Unobtainable: other Constitutional Constitutional: Denies fatigue, fever(s), poor appetite, weight gain or weight loss ENT HEENT: Denies mouth lesions Cardiovascular Cardiovascular: Denies abdominal bloating, abdominal edema or abdominal pain Respiratory/Chest Respiratory/Chest: Denies change in mental status, change in phlegm color, chest congestion or chest tightness Gastrointestinal Gastrointestinal: Denies belching, bloating, change in bowel habits, change in stool character, chewing difficulty, coffee ground emesis, constipation, cramping, diarrhea, dyspepsia, dysphagia, early satiety, excessive flatus, fecal incontinence, heartburn, hematemesis, hematochezia, hemorrhoids, loose stools, melena, nausea, odynophagia, rectal bleeding, tenesmus, vomiting or weight changes Genitourinary Genitourinary: Denies abdominal discomfort, burning urination or itching Musculoskeletal Musculoskeletal: Reports as per HPI; Denies muscle weakness or myalgias Integumentary Integumentary: Denies jaundice Neurologic Neurologic: Denies lack of coordination or weakness Psychiatric Psychiatric: Denies confusion, depression, memory loss, mood swings, paranoia or suicidal ideation Endocrine Endocrinology: Denies systems reviewed and no addt'l complaints, except as documented Hematologic/Lymphatic Hematologic/Lymphatic: Denies anemia, easy bleeding, easy bruising or lymphadenopathy Allergic/Immunologic Allergic/Immunologic: Denies systems reviewed and no addt'l complaints, except as documented Vital Signs Vital Signs Vital Signs: 06/17/23 07:38 06/17/23 07:38 Temperature 97.6 F L Temperature Source Temporal Pulse Rate 93 Respiratory Rate 18 Respiratory Pattern Normal Blood Pressure 133/76 H Blood Pressure Mean 95 Blood Pressure Source Monitor Blood Pressure Position Semi-Fowlers Blood Pressure Location Right Arm Pulse Ox 96 Oxygen Delivery Method Room Air Weight Weight: 218 lb 4.122 oz Body Mass Index (BMI) 33.2 Physical Exam Const alert General Appearance: cooperative Orientation / Consciousness: oriented to person HEENT hearing grossly normal bilaterally Head and Scalp: normal to inspection Face and Sinus: face symmetric Nose: external nose normal Mouth: oral and palatal mucosa normal Eyes conjunctivae normal General Eye: normal appearance of both eyes Neck full ROM General: normal visual inspection Lymph Lymphatic: no lymphadenopathy noted Chest inspection of chest normal and palpation of chest normal Chest: symmetrical chest wall rise Resp normal respiratory effort Effort and Inspection: able to speak in complete sentences Cardio regular rate GI non-distended Percussion: normal to percussion Rectal Exam: deferred Neuro Speech: speech normal Gait (Neuro): normal gait Assessment & Plan Assessment/Plan (1) Encounter for screening for malignant neoplasm of colon: PLAN: She was explained alternatives, risk, benefits including not withstanding bleeding, infection, sepsis, perforation, need for emergent surgery . She will have an ASA of 2.
--- NOTE | 2023-06-17 08:30 | COLBX_PTH ---
PATIENT: MONTESRRAT CRAMER LOC: EN U#:[id number] AGE/SX: 72/F ROOM: RE06/17/[address]: Dr. Hever Ruiz DO : 1950 BED: DIS: 06/17/2023 SPEC #: [id number] RECD: 06/17/23 11:15 STATUS: SERGIO YARA #: [id number] CHASITY: 06/17/23 08:[address]: Hever Ruiz DEPT: SURGICAL PATHOLOGY RECD BY: Beth Wong ENTERED: 06/17/23 11:40 SP TYPE: COLON BX OT DR: Dr. Anju Verde DO Tissues: A - COLON BIOPSY B - Sigmoid colon biopsy Procedures: Surgery Specimen Level IV HEADER OPERATION: Colonoscopy with biopsy and polyp biopsy - open access PRE-OP DIAGNOSIS: Screening TISSUE SUBMITTED: A - Splenic flexure polyp, B - Sigmoid colon biopsy MICROSCOPIC DIAGNOSIS A. Splenic flexure polyp, biopsy: A fragment of colonic mucosa, no pathologic diagnosis. B. Sigmoid colon, biopsy: Ischemic colitis. See comment. RODNEY:eric 06/18/2023 COMMENT B. Correlation with clinical, endoscopic findings and appropriate follow up are necessary. MICROSCOPIC DESCRIPTION Slides are reviewed. GROSS DESCRIPTION A - Received in fixative is one container labeled with the patient's name and designated splenic flexure polyp. The specimen consists of one irregular fragment of light headley soft tissue that measures 0.2 x 0.2 x 0.1 cm. The specimen is totally submitted in one cassette. B - Received in fixative is one container labeled with the patient's name and designated sigmoid colon biopsy. The specimen consists of multiple irregular fragments of light headley soft tissue that in aggregate measure 1.0 x 0.4 x 0.1 cm. The specimen is totally submitted in one cassette. / RODNEY:eric 06/17/2023 TC:5 CPT: 60506 x2
[2023-06-17 08:36] VITALS: BP 113/61; BP 133/76; PULSE 69; RESP 18; TEMP 36.7; O2SAT 96
[2023-06-17 08:40] VITALS: BP 105/63; BP 133/76; PULSE 65; RESP 18; O2SAT 97
--- NOTE | 2023-06-17 08:42 | OP.COLON_ITS ---
Patient Name: Tess Aguirre Procedure Date: 06/17/2023 8:06 AM Date of : 1950 Age: 72 Procedure: Colonoscopy Indications: Screening for colorectal malignant neoplasm Providers: Hever Ruiz DO Medicines: Monitored Anesthesia Care Patient Profile: This is a 72 year old female. Refer to note in patient chart for documentation of history and physical. Last Colonoscopy: more than 10 years ago. Complications: No immediate complications. Procedure: Pre-Anesthesia Assessment: - Prior to the procedure, a History and Physical was performed, and patient medications and allergies were reviewed. The patient is competent. The risks and benefits of the procedure and the sedation options and risks were discussed with the patient. All questions were answered and informed consent was obtained. Patient identification and proposed procedure were verified by the physician in the pre-procedure area. Mental Status Examination: alert and oriented. Airway Examination: normal oropharyngeal airway and neck mobility. Respiratory Examination: clear to auscultation. CV Examination: normal. Prophylactic Antibiotics: The patient does not require prophylactic antibiotics. Prior Anticoagulants: The patient has taken no anticoagulant or antiplatelet agents. ASA Grade Assessment: II - A patient with mild systemic disease. After reviewing the risks and benefits, the patient was deemed in satisfactory condition to undergo the procedure. The anesthesia plan was to use monitored anesthesia care (MAC). Immediately prior to administration of medications, the patient was re-assessed for adequacy to receive sedatives. The heart rate, respiratory rate, oxygen saturations, blood pressure, adequacy of pulmonary ventilation, and response to care were monitored throughout the procedure. The physical status of the patient was re-assessed after the procedure. After I obtained informed consent, the scope was passed under direct vision. Throughout the procedure, the patient's blood pressure, pulse, and oxygen saturations were monitored continuously. The Colonoscope was introduced through the anus and advanced to the cecum, identified by appendiceal orifice and ileocecal valve. The colonoscopy was performed without difficulty. The patient tolerated the procedure well. The quality of the bowel preparation was adequate. The ileocecal valve, appendiceal orifice, and rectum were photographed. Scope In: 8:15:39 AM Scope Withdrawal Time 0 hours 8 minutes 14 seconds Scope Out: 8:29:48 AM Total Procedure Duration Time 0 hours 14 minutes 9 seconds Findings: The perianal and digital rectal examinations were normal. Multiple small and large-mouthed diverticula were found in the recto-sigmoid colon, sigmoid colon and descending colon. Localized severe inflammation characterized by erosions, erythema and linear erosions was found in the recto-sigmoid colon, in the sigmoid colon and in the descending colon. Biopsies were taken with a cold forceps for histology. Verification of patient identification for the specimen was done. Estimated blood loss was minimal. A 5 mm polyp was found in the descending colon. The polyp was sessile. The polyp was removed with a cold snare. Resection and retrieval were complete. Verification of patient identification for the specimen was done. Estimated blood loss was minimal. Impression: - Diverticulosis in the recto-sigmoid colon, in the sigmoid colon and in the descending colon. - Localized severe inflammation was found in the recto-sigmoid colon, in the sigmoid colon and in the descending colon secondary to ischemic colitis. Biopsied. - One 5 mm polyp in the descending colon, removed with a cold snare. Resected and retrieved. Recommendation: - Repeat colonoscopy in 5 years for surveillance. - Continue present medications. Procedure Code(s): --- Professional --- 59393, Colonoscopy, flexible; with removal of tumor(s), polyp(s), or other lesion(s) by snare technique 98180, 59, Colonoscopy, flexible; with biopsy, single or multiple CPT copyright 2021 [employer]. All rights reserved. The codes documented in this report are preliminary and upon licensed and certified midwife review may be revised to meet current compliance requirements. Hever Ruiz DO 06/17/2023 8:41:37 AM This report has been signed electronically. Number of Addenda: 0 Note Initiated On: 06/17/2023 8:06 AM
--- NOTE | 2023-06-17 08:42 | OP.CCLET_ITS ---
06/17/2023 Anju Verde Re : Colonoscopy procedure for Tess Verde This procedure was performed on Saturday, June 17, 2023. My impressions and recommendations are as follows: Impressions : - Diverticulosis in the recto-sigmoid colon, in the sigmoid colon and in the descending colon. - Localized severe inflammation was found in the recto-sigmoid colon, in the sigmoid colon and in the descending colon secondary to ischemic colitis. Biopsied. - One 5 mm polyp in the descending colon, removed with a cold snare. Resected and retrieved. Recommendations : - Repeat colonoscopy in 5 years for surveillance. - Continue present medications. My findings are described in the full procedure note, which is enclosed. If I can be of further assistance, please feel free to contact me at . Sincerely, Hever Ruiz, 06/17/2023 8:41:37 AM This report has been signed electronically.
[2023-06-17 08:45] VITALS: BP 121/69; BP 133/76; PULSE 66; RESP 18; O2SAT 96
[2023-06-17 08:51] VITALS: BP 121/70; BP 133/76; PULSE 58; RESP 16; TEMP 36.4; O2SAT 97
[2023-06-17 09:08] VITALS: BP 133/76
== END 2023-06-17 09:18 | disposition home or self-care (01) ==
LOC: EN 07:24 → AC 07:25
PROVIDERS: PCP Internal Medicine; Referring Provider Internal Medicine; Visit Provider Internal Medicine Gastroenterology
PROC: 0DJD8ZZ Inspection of Lower Intestinal Tract, Via Natural or Artificial Opening Endoscopic (ICD-10-PCS; CPT 45378; principal; 2023-06-17 08:25)
DX: Z12.11 Encounter for screening for malignant neoplasm of colon (principal); K55.9 Vascular disorder of intestine, unspecified; Z79.82 Long term (current) use of aspirin; E78.5 Hyperlipidemia, unspecified; I10 Essential (primary) hypertension; K57.30 Diverticulosis of large intestine without perforation or abscess without bleeding; K63.5 Polyp of colon; K58.9 Irritable bowel syndrome, unspecified
CPT/HCPCS: 45380; 45385; 88305; J7120

== ENCOUNTER → 2023-06-26 | Outpatient (CLI) | payer MEDICARE, SELFPAY ==
--- NOTE | 2023-06-26 07:23 | MRI_ITS ---
STUDY: MRI LUMBAR SPINE WITHOUT CONTRAST REASON FOR EXAM: Female, 72 years old. lumbar radiculopathy TECHNIQUE: Standardized fat and water weighted pulse sequences were obtained in the sagittal and axial planes. COMPARISON: None FINDINGS: Normal lumbar lordosis. There is no substantial scoliosis. Normal conus medullaris that terminates at the T12-L1 level. No marrow edema or fracture or compression deformity is present. T12-L1: Normal endplates. Normal disc height, hydration and morphology. Normal bilateral facet joints. Normal central canal and bilateral lateral recesses. Normal bilateral intervertebral neural foramina. L1-2: Normal endplates. Normal disc height, hydration and morphology. Normal bilateral facet joints. Normal central canal and bilateral lateral recesses. Normal bilateral intervertebral neural foramina. L2-3: Severe disc space narrowing with a diffuse disc spur complex. Moderate anterior Modic endplate degenerative signal. Retrolisthesis of L2 on L3 of 2 to 3 mm. Mild central canal stenosis. Mild facet joint hypertrophy. Left foraminal nerve root sleeve cyst measures 5.4 mm and contributes to impingement on the exiting nerve root. bilateral intervertebral neural foramina. L3-4: Normal endplates. Diffuse disc desiccation with mild posterior disc space narrowing and slight annular bulging. Mild facet joint hypertrophy contributing to mild central canal stenosis. Normal bilateral intervertebral neural foramina. L4-5: Normal endplates. Diffuse disc desiccation with mild posterior disc space narrowing and annular bulging as well as a superimposed small right paracentral disc protrusion causing right lateral recess stenosis with compression the descending nerve root. Moderate to significant facet joint and ligament of flavum hypertrophy contributes to severe central canal stenosis. Mild left foraminal stenosis with nerve root compression. Normal right neural foramen. L5-S1: Normal endplates. Diffuse disc desiccation. Normal disc height and morphology. Normal bilateral facet joints. Normal central canal and bilateral lateral recesses. Normal bilateral intervertebral neural foramina. Normal visualized sacral ala. There is moderate paraspinal muscular atrophy. MRI/Spine Lumbar (Routine) IMPRESSION: 1. Multilevel degenerative changes, as described above. 2. Severe central canal stenosis at L4-L5 Electronically Signed: Israel Vasquez MD at 11:09 EDT ,
--- NOTE | 2023-06-26 07:40 | MRI_ITS ---
STUDY: MRI CERVICAL SPINE WITHOUT CONTRAST REASON FOR EXAM: Female, 72 years old. Cervical stenosis of spine -- headaches TECHNIQUE: Standardized fat and water weighted pulse sequences were obtained in the sagittal and axial planes. COMPARISON: None FINDINGS: Normal foramen magnum and brainstem-cervical cord junction. Normal craniovertebral junction. Normal anterior atlantoaxial articulation. Normal odontoid process. Normal cervical lordosis. Normal vertebral bodies and posterior osseous elements. Acute fracture. C2-3: Normal endplates. Normal disc height, signal and morphology. Normal central canal and intervertebral neural foramina. C3-4: Normal endplates. Normal disc height, signal and morphology. Facet spurring. No canal stenosis. Right foraminal narrowing. C4-5: Normal endplates. Normal disc height, signal and morphology. Facet spurring on the right. Normal central canal and intervertebral neural foramina. C5-6: Disc bulge and spurring to the left. Mild facet spurring. Mild canal stenosis. Mild left foraminal narrowing. C6-7: Disc bulge and spurring with left paracentral disc protrusion, series 8 image 42/160. Facet spurring on the left. Mild canal stenosis. Neural foramina are patent C7-T1: Left paracentral disc protrusion, series 8 image 15/160. No canal stenosis. Neural foramina are patent. Normal cervical cord. Normal visualized soft tissue structures. MRI/Spine Cervical (Routine) IMPRESSION: Degenerative change with C6-7 disc herniation and canal stenosis. Electronically Signed: Ruy Estevez MD at 10:07 EDT ,
== END | disposition home or self-care (01) ==
PROVIDERS: PCP Internal Medicine; Referring Provider Internal Medicine; Visit Provider Internal Medicine
DX: M48.02 Spinal stenosis, cervical region (principal); M54.16 Radiculopathy, lumbar region
CPT/HCPCS: 72141; 72148

== ENCOUNTER → 2023-07-14 | Outpatient (CLI) | payer MEDICARE, SELFPAY ==
--- NOTE | 2023-07-14 12:47 | ECHOD_ITS ---
Reason For Study: PALPITATIONS Procedure This was a 2D Doppler, Color Flow transthoracic echocardiogram. Exam performed in department. Left Ventricle Normal LV size. Left ventricular systolic function is normal. The estimated ejection fraction is 60 %. Stage 1 diastolic dysfunction. No regional wall motion abnormalities noted. Right Ventricle Normal RV size. Normal systolic function. Atria Normal left atrium. Normal right atrium. Mitral Valve Normal mitral valve. Tricuspid Valve Normal tricuspid valve. Aortic Valve Trisinus/trileaflet aortic valve. Mild (1+) aortic valve insufficiency. Pulmonic Valve Normal pulmonic valve. Great Vessels Mild to moderately dilated ascending aorta. The pulmonary artery is normal size. Normal inferior vena cava. Pericardium/Pleural No pericardial effusion. MMode/2D Measurements & Calculations Ao root diam: 4.5 cm LAV(MOD-bp): 67.6 ml LVAd ap4: 30.3 cm2 LAV(MOD-bp) Indexed: 31.8 ml/m2 LVLd ap4: 8.4 cm LAV(MOD-sp2): 67.4 ml EDV(MOD-sp4): 87.9 ml LAV(MOD-sp4): 65.3 ml EDV(sp4-el): 92.2 ml LVAs ap4: 17.0 cm2 LVLs ap4: 7.2 cm ESV(MOD-sp4): 36.1 ml ESV(sp4-el): 34.0 ml EF(MOD-sp4): 58.9 % EF(sp4-el): 63.2 % SV(MOD-sp4): 51.8 ml SV(sp4-el): 58.3 ml LA A4 area: 21.8 cm2 LA dimension(2D): 4.2 cm RA A4 area: 12.8 cm2 TAPSE: 2.3 cm Time Measurements MV dec time: 0.18 sec Doppler Measurements & Calculations MV E max ian: 74.2 cm/sec Lat Peak E' Ian: 7.9 cm/sec Med Peak E' Ian: 6.0 cm/sec MV A max ian: 83.7 cm/sec E/E' lat: 9.3 E/E' med: 12.3 MV E/A: 0.89 MV V2 max: 85.5 cm/sec MV dec slope: 414.8 cm/sec2 Ao V2 max: 134.3 cm/sec MV max P.9 mmHg Ao max P.2 mmHg MV V2 mean: 51.9 cm/sec Ao V2 mean: 87.9 cm/sec MV mean P.2 mmHg Ao mean P.6 mmHg MV V2 VTI: 37.1 cm Ao V2 VTI: 31.5 cm AV (velocity ratio): 0.79 LV V1 max: 108.6 cm/sec PA V2 max: 98.5 cm/sec LV V1 max P.7 mmHg PA V2 mean: 61.7 cm/sec LV V1 mean P.6 mmHg LV V1 mean: 75.5 cm/sec LV V1 VTI: 24.8 cm ECHO/Echo Complete Interpretation Summary Normal LV size. Left ventricular systolic function is normal. The estimated ejection fraction is 60 %. Mild to moderately dilated ascending aorta. Stage 1 diastolic dysfunction. Ordering Physician: Chana Connor Referring Physician: Chana Connor Performed By: Kayce Coleman RCS
== END | disposition home or self-care (01) ==
LOC: CVS 12:46
PROVIDERS: PCP Internal Medicine; Referring Provider Nurse Practitioner Gerontology; Visit Provider Nurse Practitioner Gerontology
DX: R00.2 Palpitations (principal); I77.810 Thoracic aortic ectasia; R42 Dizziness and giddiness
CPT/HCPCS: 93306

== ENCOUNTER 2023-10-19 08:55 | Day surgery (SDC) | payer MEDICARE, SELFPAY ==
[2023-10-19 09:22] VITALS: BP 124/70; PULSE 66; RESP 16; TEMP 36.6; O2SAT 97; BMI 34.4
[2023-10-19] MEDS: Lactated Ringers 1,000 ML 15 ML IV (09:34)
--- NOTE | 2023-10-19 10:09 | RAD_ITS ---
PROCEDURE: Caudal epidural injection. DATE OF EXAMINATION: October 19, 2023. INDICATION: Female, 73 years old. Low back pain. FLUOROSCOPY TIME (if supplied): (4 seconds) minutes/seconds. 3.23 mGy. 2 images were submitted. RAD/Fluor Guidance for Spine Inj IMPRESSION: Intraoperative imaging provided for caudal epidural steroid injection. Electronically Signed: Lyndon Lira MD at 13:13 EST ,
[2023-10-19] MEDS: 0.9% Normal Saline (Pres. free 10 ML Vial (10:18)
[2023-10-19] MEDS: MethylPREDNISolone Acetate 80 MG/ML Vial (10:18)
[2023-10-19] MEDS: Lidocaine 1% (5 ml sdv) 5 ML Vial (10:19)
[2023-10-19 10:25] VITALS: BP 104/58; BP 124/70; PULSE 56; RESP 16; TEMP 36.8; O2SAT 97
--- NOTE | 2023-10-19 10:27 | OP.PCM_ITS ---
Report of Operation Date of Procedure: 10/19/23 Pre-Operative Diagnosis: Lumbosacral radiculopathy, lumbosacral degenerative di sc disease, lumbosacral spinal stenosis Post-Operative Diagnosis: Lumbosacral radiculopathy, lumbosacral degenerative disc disease, lumbosacral spinal stenosis Surgery/Procedure Performed:: Diagnostic/therapeutic caudal epidural steroid injection under fluoroscopic guidance Type of Anesthesia: MAC Estimated Blood Loss (mL): Minimal Description of Procedure: DESCRIPTION OF PROCEDURE: History and physical of today was reviewed. Risks and benefits of the procedure were explained. The patient understood and agreed to proceed. Informed consent was obtained. IV inserted per routine protocol. The patient was taken to the operating room and placed in the prone position with a pillow positioned underneath the abdomen. The lower back and tailbone area was prepped and draped in a sterile fashion using iodine x3. Under fluoroscopy guidance on a lateral view, the caudal space was identified. The skin and subcutaneous tissue was anesthetized with approximately 3 mL of 1% lidocaine using a 25-gauge regular needle. Under direct visualization with fluoroscopy, using a 22-gauge 3-1/2-inch spinal needle, the needle was advanced via the skin through the sacral hiatus. The tip of the needle was passed through the sacrococcygeal ligament and advanced to approximately S4 area. After negative aspiration of blood or CSF, a total of 3 mL of contrast was injected to confirm correct placement of the needle as well as cephalad spread. The spread was followed to approximately L5 area. After confirmation on AP as well as lateral view and repeated negative aspiration, a total of 15 mL of preservative-free 0.125% Marcaine with 80 mg of Depo-Medrol was injected easily. The needle was then removed intact. The patient experienced no sign or symptoms of intrathecal or intravascular injection. The patient experienced no paresthesia. The procedure was completed without any apparent difficulty or any complications. The patient appeared to tolerate it well. ASSESSMENT AND PLAN: This is a 73-year-old female with lumbosacral radiculopathy, lumbosacral degenerative disc disease, lumbosacral spinal stenosis status post diagnostic/therapeutic caudal epidural steroid injection, patient will continue her current medications, patient will follow up in approximately 2 weeks for reevaluation. Complications None
[2023-10-19 10:30] VITALS: BP 107/62; BP 124/70; PULSE 57; RESP 16; O2SAT 97
[2023-10-19 10:35] VITALS: BP 104/61; BP 124/70; PULSE 59; RESP 16; O2SAT 97
[2023-10-19 10:40] VITALS: BP 124/70; BP 99/63; PULSE 60; RESP 16; TEMP 37.1; O2SAT 95
[2023-10-19 10:52] VITALS: BP 124/70
== END 2023-10-19 11:04 | disposition home or self-care (01) ==
LOC: SDC 08:55 → AC 08:57
PROVIDERS: PCP Internal Medicine; Referring Provider Internal Medicine; Visit Provider Anesthesiology Pain Medicine
PROC: 3E0S3BZ Introduction of Anesthetic Agent into Epidural Space, Percutaneous Approach (ICD-10-PCS; CPT 62282; principal; 2023-10-19 10:25)
DX: M48.07 Spinal stenosis, lumbosacral region (principal); M51.17 Intervertebral disc disorders with radiculopathy, lumbosacral region; Z90.711 Acquired absence of uterus with remaining cervical stump; I10 Essential (primary) hypertension; K21.9 Gastro-esophageal reflux disease without esophagitis; G47.33 Obstructive sleep apnea (adult) (pediatric); J45.909 Unspecified asthma, uncomplicated
CPT/HCPCS: 62323; 64483; 77003; J7120; J3490

== ENCOUNTER → 2023-10-28 | Outpatient (CLI) | payer MEDICARE, SELFPAY ==
--- NOTE | 2023-10-28 10:55 | BI_ITS ---
MAMMOGRAPHY - BILATERAL SCREENING REASON FOR EXAM: Female, 73 years old. Routine annual screening examination. PERTINENT HISTORY: Non-contributory. Remote left stereotactic breast biopsy. Stable bilateral nipple inversion. TECHNIQUE: Digital bilateral breast candace (3D mammographic acquisition) in the CC and MLO projections. 2-D mediolateral oblique (MLO) and craniocaudad (CC) views of both breasts were obtained. CAD: Full Field Digital Mammography with Computer Added Detection was performed. COMPARISON: Comparison is made with prior study dated September 17, 2022 and May 18, 2023. FINDINGS: Breast Composition: There are scattered areas of fibroglandular density. There are no dominant masses or suspicious calcifications. Stable small benign-appearing bilateral axillary lymph nodes. A tissue clip marker is once again seen in the deep upper lateral portion of the left breast. No other significant abnormalities are identified. There has been no significant change since the prior study. BI/SCRN MAMM (CAD)W/CANDACE BILAT IMPRESSION: Stable bilateral screening mammogram. Yearly follow-up mammogram recommended. (A) ASSESSMENT CATEGORY: BIRADS Category 2: Benign. A letter regarding these results will be sent to the patient by the facility within 30 days. Approximately 10% of breast cancers are not detected by mammography. A normal mammogram should not delay biopsy of a clinically suspicious abnormality. [id number] Electronically Signed: Lyndon Lira MD at 12:14 EST ,
== END | disposition home or self-care (01) ==
LOC: OPBI 10:55
PROVIDERS: PCP Internal Medicine; Referring Provider Internal Medicine; Visit Provider Internal Medicine
DX: Z12.31 Encounter for screening mammogram for malignant neoplasm of breast (principal)
CPT/HCPCS: 77063; 77067

== ENCOUNTER → 2023-12-23 | Outpatient (CLI) | payer MEDICARE, SELFPAY ==
--- NOTE | 2023-12-23 13:52 | CT_ITS ---
STUDY: CTA HEAD AND NECK WITH CONTRAST REASON FOR EXAM: Female, 73 years old. pulsatile tinnitus RADIATION DOSAGE (If Supplied By Facility): CTDIvol = ( 29.42 ) mGy, DLP = ( 1517.27 ) mGycm TECHNIQUE: CT angiography was performed with a multi-detector CT scanner. Data acquisition was obtained from the skull base through the vertex following intravenous administration of IV 100mL Isovue-370. MIP images were reconstructed from the axial data set. Post-processing of the angiographic images was performed, with multiplanar reformation and 3D reconstruction. Individualized dose optimization techniques were used for this CT. COMPARISON: No relevant priors. FINDINGS: Normal bilateral petrous carotid arteries. Normal right cavernous carotid artery with a normal supraclinoid bifurcation. Normal left cavernous carotid artery with a normal supraclinoid bifurcation. Normal right A1 segments of the anterior cerebral artery. Normal left A1 segments of the anterior cerebral artery. Normal intact anterior communicating artery (ACOM). Normal bilateral A2 segments of the anterior cerebral arteries. Normal right M1 and M2 segments of the middle cerebral arteries, with a normal M1 bifurcation. Normal left M1 and M2 segments of the middle cerebral arteries, with a normal M1 bifurcation. Normal right posterior communicating artery (PCOM). Normal left posterior communicating artery (PCOM). Normal bilateral vertebral arteries. Normal basilar artery with a normal basilar bifurcation. The visualized bilateral superior cerebellar (SCA) arteries are normal. Normal bilateral P1, P2 and visualized P3 segments of the posterior cerebral arteries. There is no demonstrated aneurysm of the [place]. Mild degree of cerebral atrophy. Tiny lacuna is seen in the insular cortex of the right temporal lobe. Heterogeneous appearance of the upper pole of the right lobe of the thyroid. AORTIC ARCH: There is atherosclerotic calcific plaque formation of the aortic arch and great vessels arising from the aortic arch, without a hemodynamically significant stenosis. There is a normal origin of the brachiocephalic, left common carotid, and left subclavian arteries. RIGHT CAROTID ARTERIES: Normal right common carotid artery (CCA). Normal right common carotid bulb. Normal origin of the right internal carotid (ICA) artery without a hemodynamically significant stenosis. Normal visualized cervical portion of the right internal carotid artery. Normal origin of the right external carotid artery (ECA). LEFT CAROTID ARTERIES: Normal left common carotid artery (CCA). Normal left common carotid bulb. Normal origin of the left internal carotid (ICA) artery without a hemodynamically significant stenosis. Normal visualized cervical portion of the left internal carotid artery. Normal origin of the left external carotid artery (ECA). VERTEBRAL ARTERIES: Normal bilateral vertebral arteries. CT/CTA Head AND Neck W/ Contrast IMPRESSION: Normal CTA Head and neck with contrast. Electronically Signed: Lyndon Lira MD at 15:29 EDT ,
[2023-12-23 14:34] LABS: CREATININE FINGERSTICK 1.3 mg/dL (0.55-1.02)
== END | disposition home or self-care (01) ==
LOC: CT 13:51
PROVIDERS: PCP Internal Medicine; Referring Provider Internal Medicine; Visit Provider Internal Medicine
DX: H93.A9 Pulsatile tinnitus, unspecified ear (principal)
CPT/HCPCS: 70496; 70498; Q9967

== ENCOUNTER 2024-02-15 07:13 | Day surgery (SDC) | payer MEDICARE, SELFPAY ==
[2024-02-15] VITALS (8 sets, daily range): BP systolic 124–144; BP diastolic 61–73; PULSE 56–69; RESP 16; TEMP 36.1–36.7; O2SAT 94–98; BMI 34.9
[2024-02-15] MEDS: Lactated Ringers 1,000 ML 15 ML IV (07:51)
--- NOTE | 2024-02-15 07:58 | PCM.PRE.AN2 ---
ASA Classification* ASA Classification ASA Classification: 2 Assessment & Plan Anesthesia* Anesthesia Assessment Anesthesia Assessment: Discussed sedation and/or anesthesia options, risks, benefits, and alternatives with patient/parents/legal guardian/POA. Questions invited. The patient/parents/legal guardian/POA seems to understand and agrees to proceed with anesthesia plan. Reviewed the physical assessment, medical history, allergy history and patient home medications list prior to surgery/procedure/anesthetic and documented any changes. Performed airway and anesthesia risk assessments. 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 When Was Last Pacemaker Check QUESTION #4 FULL TEXT: You/Your Family Experience fever (hyperthermia) with Anesthesia Last Oral Intake Last Oral intake: Last Oral Intake NPO since 00:00 02/15/24 07:47 Meds taken in AM with sips of Yes 02/15/24 07:47 water? Meds patient instructed to take am of surgery PONV PONV - metal buildings assembler: PONV - metal buildings assembler Female HX of Motion Sickness HX of N/V After Surgery Non-Smoker Duration of Surgery greater than 60 minutes Number of Risk Factors PONV Score Height & Weight Height & Weight: Anesthesia: Height & Weight Height 5 ft 8 in 02/15/24 07:47 Weight: 104.417 kg 02/15/24 07:47 Body Mass Index (BMI) 34.9 02/15/24 07:47 Respiratory Assessment Respiratory Assessment - metal buildings assembler: Respiratory Tract Infection Hx - metal buildings assembler Hx Respiratory Tract Infection No 10/14/23 08:51 STOP Sleep Apnea STOP Sleep Apnea - metal buildings assembler: STOP Sleep Apnea - metal buildings assembler Hx Hypertension Yes: CONTROLLED WITH MED 10/14/23 08:51 Hx Sleep Apnea Yes 10/14/23 08:51 CPAP Yes 10/19/23 10:25 BIPAP No 10/14/23 08:51 Do you snore loudly (louder than talking or can be heard Do you often feel tired/ fatigued/ sleepy during daytime? Has anyone observed you stop breathing during sleep? STOP Results QUESTION #5 FULL TEXT : Do you snore loudly (louder than talking or can be heard through closed doors)? Tobacco Use History Tobacco Use History - metal buildings assembler: Tobacco Use History - metal buildings assembler Tobacco Use Smoking Status Never smoker 11/09/23 09:31 Hx Tobacco Use No 10/14/23 08:51 Years Smoking Packs Smoked per Day Smoking Cessation Date was within the last 15 years Hx Smoking Cessation Date Hx Smoking Cessation Counseling Hematologic Medial History Hematologic Hx - metal buildings assembler: Hematologic Medical Hx - engraver letter Hx of Blood Transfusion Hx of Transfusion in last 3 Months Date of Last Transfusion (if within last 3 months) Ever experience any problems with transfusion(s)? Specify any problems Hx of Preganancy in last 3 Months Nurse Filling Out Transfusion & Questions: Date: Time: Patient unable to answer at this time (ie. confused, unrespo /Reproduction History /Reproductive History - metal buildings assembler: /Reproductive Hx- metal buildings assembler Hx Now Gestational Age (in weeks): EDC: Hx Hx Para Hx Section SAB No 06/11/23 12:17 Active Medications Active Medications: Current Medications Generic Name Dose Route Start Last Admin Trade Name Freq PRN Reason Stop Dose Admin Lactated Ringer's 1,000 mls @ 15 mls/hr 02/15/24 07:30 02/15/24 07:51 IV 15 mls/hr .Q48H SARA Administration Anesthesia Focused Assessment* Temperature: 98.1 F Pulse Rate: 61 Blood Pressure: 133/67 Respiratory Rate: 16 Pulse Ox: 98 Airway Assessment Mouth opens: >3 cm Mallampati Score: II Focused Labs Anesthesia Preop lab: CBC WBC 5.8 K/mm3 (4.4-11.0) 04/02/23 10:29 RBC 4.56 M/mm3 (4.2-5.4) 04/02/23 10:29 Hgb 12.7 g/dL (12.0-15.0) 04/02/23 10:29 Hct 40.1 % (37-47) 04/02/23 10:29 Plt Count 200 K/mm3 (150-450) 04/02/23 10:29 CHEMISTRY Potassium 3.9 mmol/L (3.5-5.1) 04/02/23 10:29 Sodium 141 mmol/L (136-145) 04/02/23 10:29 Magnesium 2.2 mg/dL (1.6-2.6) 07/11/21 09:50 BUN 18 mg/dL (7-18) 04/02/23 10:29 Creatinine 0.91 mg/dL (0.55-1.02) 04/02/23 10:29 Glucose 107 mg/dL (74-106) H 04/02/23 10:29 TSH 3.06 uIU/mL (0.358-3.74) 02/04/21 19:00 COAG Review of Systems (Anesthesia) ROS Narrative System reviewed and no additional complaints, except as documented. [facility] Medical History History of steroid therapy History of Holter monitoring Tinnitus Lightheaded Wears glasses Arthritis Fatty liver DVT (deep venous thrombosis) Back pain Gastric reflux Non-smoker CPAP (continuous positive airway pressure) dependence History of echocardiogram History of stress test Cardiology follow-up encounter Hypertension History of migraine headaches Osteopenia Osteoarthritis IBS (irritable bowel syndrome) Hyperlipidemia Anemia Premature atrial contraction Essential hypertension Asthma GERD (gastroesophageal reflux disease) Home Medications ?Medication ?Instructions ?Recorded ?Last Taken ?Type albuterol sulfate 90 mcg/actuation 2 puff inhalation Q6H PRN Wheezing 03/12/21 02/14/24 History aerosol inhaler (ProAir HFA) cholecalciferol (vitamin D3) 125 125 mcg PO DAILY 03/12/21 02/14/24 History mcg (5,000 unit) tablet omeprazole 20 mg capsule,delayed 20 mg PO DAILY 03/12/21 02/14/24 History release polyethylene glycol 3350 17 gram 17 g PO DAILY 03/12/21 02/14/24 History oral powder packet (Miralax) rosuvastatin 5 mg tablet 10 mg PO DAILY 01/17/22 02/14/24 History aspirin 81 mg capsule 81 mg PO DAILY 09/05/22 02/14/24 History zinc gluconate 30 mg tablet 30 mg PO DAILY 04/16/23 02/14/24 History denosumab 60 mg/mL subcutaneous 60 mg subcut [id number] 06/19/23 02/14/24 History syringe (Prolia) losartan 50 mg tablet 25 mg PO DAILY 06/19/23 02/15/24 History mecobalamin (vitamin B12) 1,000 1,000 mcg PO DAILY 06/19/23 02/14/24 History mcg chewable tablet coenzyme Q10 75 mg capsule (Ultra 75 mg PO DAILY 07/17/23 02/14/24 History CoQ10) calcium carbonate 600 mg-vitamin 1 tab PO DAILY 08/03/23 02/14/24 History D3 5 mcg (200 unit) tablet lactobacillus combination no.4 3 3,000 mmu cells PO DAILY 08/03/23 02/14/24 History billion cell capsule (Probiotic) magnesium oxide 400 mg PO DAILY 08/03/23 02/14/24 History metoprolol succinate 25 mg 25 mg PO BID #180 tabs 02/01/24 02/15/24 Rx tablet,extended release 24 hr ciprofloxacin HCl 500 mg tablet 500 mg PO BID 02/08/24 02/14/24 History gabapentin 100 mg capsule 600 mg PO DAILY 02/08/24 02/14/24 History mometasone-formoterol HFA 100 2 puff inhalation BID 02/08/24 02/14/24 History mcg-5 mcg/actuation aerosol inhaler (Dulera) riboflavin (vitamin B2) 50 mg 100 mg PO DAILY 02/08/24 02/14/24 History tablet Allergy/AdvReac Type Severity Reaction Status Date / Time clarithromycin (From Biaxin) Allergy Rapid Verified 02/15/24 07:46 heart rate simvastatin Allergy Pain in Verified 02/15/24 07:46 joints Family History Mother Hypertension CVA (cerebral vascular accident) Asthma Father CKD (chronic kidney disease) Colon polyps Brother Crohn's disease Brother , Age 57 Myocardial infarction Son Cancer lymphoma Surgical History History of shoulder surgery Hx of cardiac catheterization Hx of colonoscopy History of partial hysterectomy History of tonsillectomy Social History Smoking Status: Never smoker alcohol intake: never substance use type: does not use caffeine: No
[2024-02-15] MEDS: Bupivacaine 0.25% 30 ML Vial (08:32)
[2024-02-15] MEDS: Lidocaine 1% (5 ml sdv) 5 ML Vial (08:32)
[2024-02-15] MEDS: MethylPREDNISolone Acetate 80 MG/ML Vial (08:32)
--- NOTE | 2024-02-15 08:46 | RAD_ITS ---
PROCEDURE: Bilateral L4 and S1 medial branch nerve block. DATE OF EXAMINATION: February 15, 2024. INDICATION: Female, 73 years old. Chronic low back pain. FLUOROSCOPY TIME (if supplied): (8 seconds) minutes/seconds. 5.73 mGy. 6 images were submitted. RAD/Lumbar Spine 2 or 3 Views IMPRESSION: Intraoperative imaging provided for bilateral L4-S1 medial branch nerve block. Electronically Signed: Lyndon Lira MD at 15:35 EDT ,
--- NOTE | 2024-02-15 09:02 | PCM.POST.ANE ---
Anesthesia: Postop Eval I Current Vital Signs Temperature: 206.6 F Pulse Rate: 69 Blood Pressure: 124/72 Respiratory Rate: 16 Pulse Ox: 94 Oxygen Delivery Method: Room Air Assessment Airway patent: Yes Spontaneous unlabored respirations: Yes Mental status: Awake and Calm nausea: No Vomiting: No Anesthesia Complication: No Fluid Hydration Crystalloid volume administer (ml): 400 Total IV fluid infused: 400 Progress Note Anesthesia document: Postop Eval 1 completed: Yes
--- NOTE | 2024-02-15 09:22 | POSTOPAN2_ITS ---
Anesthesia Postop Eval I Sum Postop Eval Completion status Anesthesia document: Postop Eval 1 completed: Yes Anesthesia Postop Eval I Summary Anesthesia Postop Eval I Summary: Anesthesia Postop Eval I: Assessment Summary Airway patent Yes 02/15/24 09:03 CONTRACTS ADVISOR.[email or web address] Spontaneous unlabored Yes 02/15/24 09:03 CONTRACTS ADVISOR.EVERET[place] respirations Mental status Awake,Calm 02/15/24 09:03 CONTRACTS ADVISOR.OT nausea No 02/15/24 09:03 CONTRACTS ADVISOR.EVERETT Vomiting No 02/15/24 09:03 CONTRACTS ADVISOR.EVERETT Anesthesia Postop Eval I: Fluid Summary Crystalloid volume administer 400 02/15/24 09:03 CONTRACTS ADVISOR.MDOT (ml) Colloids volume administered ( ml) Blood Product volume administered (ml) Total IV fluid infused 400 02/15/24 09:03 CONTRACTS ADVISOR.EVERETT Anesthesia Postop Eval I: Summary Notes Anesthesia Complication No 02/15/24 09:03 CONTRACTS ADVISOR.EVERETT Anesthesia Complication Comment: Post-operative progress note Anesthesia: Postop Eval II Evaluation Mental status: Awake Pain Level: 0 nausea: No Vomiting: No Complications Anesthesia Complication: No
--- NOTE | 2024-02-15 09:22 | PCM.POSTANE2 ---
Anesthesia Postop Eval I Sum Postop Eval Completion status Anesthesia document: Postop Eval 1 completed: Yes Anesthesia Postop Eval I Summary Anesthesia Postop Eval I Summary: Anesthesia Postop Eval I: Assessment Summary Airway patent Yes 02/15/24 09:03 PRECISION DEVICES INSPECTOR/TESTER.EVERETT Spontaneous unlabored Yes 02/15/24 09:03 PRECISION DEVICES INSPECTOR/TESTER.EVERETT respirations Mental status Awake,Calm 02/15/24 09:03 PRECISION DEVICES INSPECTOR/TESTER.OT nausea No 02/15/24 09:03 PRECISION DEVICES INSPECTOR/TESTER.EVERETT Vomiting No 02/15/24 09:03 PRECISION DEVICES INSPECTOR/TESTER.EVERETT Anesthesia Postop Eval I: Fluid Summary Crystalloid volume administer 400 02/15/24 09:03 PRECISION DEVICES INSPECTOR/TESTER.MDOT (ml) Colloids volume administered ( ml) Blood Product volume administered (ml) Total IV fluid infused 400 02/15/24 09:03 PRECISION DEVICES INSPECTOR/TESTER.EVERETT Anesthesia Postop Eval I: Summary Notes Anesthesia Complication No 02/15/24 09:03 PRECISION DEVICES INSPECTOR/TESTER.EVERETT Anesthesia Complication Comment: Post-operative progress note Anesthesia: Postop Eval II Evaluation Mental status: Awake Pain Level: 0 nausea: No Vomiting: No Complications Anesthesia Complication: No
--- NOTE | 2024-02-15 10:53 | PCM.OPRPT ---
Report of Operation Date of Procedure: 02/15/24 Description of Surgical Findings:: Pre-Operative Diagnosis: Lumbosacral spondylosis, lumbosacral degenerative disc disease, lumbar facet arthropathy Post-Operative Diagnosis: Lumbosacral spondylosis, lumbosacral degenerative disc disease, lumbar facet arthropathy PROCEDURE PERFORMED: Bilateral lumbar medial branch block at, L4, L5, and S1. ANESTHESIA: MAC BLOOD LOSS: Minimal. COMPLICATIONS: None. DESCRIPTION OF PROCEDURE: History and physical of today was reviewed. Risks and benefits of the procedure were explained. The patient understood and agreed to proceed. Informed consent was obtained. IV inserted per routine protocol. The patient was taken to the operating room and placed in the prone position with a pillow positioned underneath the abdomen. The lower back area was prepped and draped in a sterile fashion using iodine x3. Under fluoroscopy guidance on AP view, the L4 through S1 vertebral bodies were visualized. The skin and subcutaneous tissue was anesthetized with approximately 5 mL of 1% lidocaine using a 25-gauge regular needle. Under direct visualization with fluoroscopy, at approximately 25-degree angle, starting on the left L4, ending on the right L4, passing through the L5 and S1 bilaterally, using a 22-gauge 3-1/2-inch spinal needle, the needle was advanced via the skin. The tip of the needle was maneuvered and directed towards the superior medial gutter of the transverse process at the vicinity of the medial branch. Once tip of the needle was in contact with the bone, the needle was pulled approximately 2 mm off the bone. After negative aspiration for blood or CSF and confirmation on AP, oblique as well as lateral view, a total of 12 mL of preservative-free 0.25% Marcaine with 80 mg of Depo-Medrol was injected in divided doses between those six levels. The needles were then removed intact. The patient experienced no sign or symptoms of intrathecal or intravascular injection. The patient experienced no paresthesia. The procedure was completed without any apparent difficulty or any complications. The patient appeared to tolerate it well. ASSESSMENT AND PLAN: This is a 73-year-old female with lumbosacral spondylosis, lumbosacral degenerative disease, lumbar facet arthropathy status post bilateral lumbar medial branch block at L4, L5, S1, patient will continue current medications, patient will follow in approximately 2 weeks for reevaluation
== END 2024-02-15 10:06 | disposition home or self-care (01) ==
LOC: SDC 07:14 → AC 07:14
PROVIDERS: PCP Internal Medicine; Referring Provider Anesthesiology Pain Medicine; Visit Provider Anesthesiology Pain Medicine
PROC: 3E0S3BZ Introduction of Anesthetic Agent into Epidural Space, Percutaneous Approach (ICD-10-PCS; CPT 62322; principal; 2024-02-15 08:15)
DX: M47.817 Spondylosis without myelopathy or radiculopathy, lumbosacral region (principal); M51.37 Other intervertebral disc degeneration, lumbosacral region; M46.96 Unspecified inflammatory spondylopathy, lumbar region; Z79.51 Long term (current) use of inhaled steroids; Z79.82 Long term (current) use of aspirin; Z79.899 Other long term (current) drug therapy
CPT/HCPCS: 64494; 64493; 01992; 64483; 72100; J7120

== ENCOUNTER → 2024-02-29 | Outpatient (CLI) | payer MEDICARE, SELFPAY ==
--- NOTE | 2024-02-29 12:53 | CT_ITS ---
STUDY: CTA CHEST REASON FOR EXAM: Female, 73 years old. Dilated aortic root RADIATION DOSAGE (If Supplied By Facility): CTDIvol = ( 17.75 ) mGy, DLP = ( 753.21 ) mGycm TECHNIQUE: The examination was performed with the intravenous administration of IV 100mL Isovue-370. Post-processing of the angiographic images was performed, with multiplanar reformation and 3D reconstruction. The protocol utilizes one or more of the following dose reduction techniques: automated exposure control, adjustment of mA and/or kV according to patient size,and/or use of iterative reconstruction technique. COMPARISON: No relevant prior comparison study available FINDINGS: There is limited enhancement of the main pulmonary artery and right and left pulmonary arteries. There is limited enhancement of the bilateral peripheral pulmonary arteries. The exam was not intended to evaluate the pulmonary arteries. Ascending thoracic aortic aneurysm measuring up to 4.7 cm in AP diameter. Tortuosity of the descending thoracic aorta. There is no demonstrated aortic dissection. Normal heart and pericardium. There are calcifications of the coronary arteries. Normal mediastinum. Normal hilar regions. Normal visualized trachea and bronchi. Hypoventilatory changes in the lung bases. There are no pulmonary infiltrates. There are no pleural effusions. Normal chest wall structures. No demonstrated acute osseous changes. The visualized portions of the upper abdomen demonstrate no acute process. CT/CTA Chest W/WO Contrast IMPRESSION: 1. Ascending thoracic aortic aneurysm measuring up to 4.7 cm in AP diameter. 2. No evidence of aortic dissection. 3. Coronary calcifications. Electronically Signed: Toño Alex MD at 14:04 EDT ,
--- NOTE | 2024-02-29 12:53 | US_ITS ---
INDICATION: abnormal finding on CT scan -- abnormal finding on CT scan EXAMINATION: Ultrasound US Head/Neck Soft Tissue TECHNIQUE: Pereyra scale and color doppler imaging was performed of the thyroid gland. COMPARISON: No relevant prior comparison study available FINDINGS: RIGHT THYROID LOBE: 4.5 x 2 x 1.4 cm. Homogeneous echotexture with normal vascularity. Nodules: Nodule 1: Cystic lesion with internal echoes wider than tall measuring about 1.2 x 0.8 x 5.6 cm consistent with Ti RADS 1. Nodule 2: Cystic lesion with solid component well-defined other than tall 6 x 8 x 4 mm nodule consistent with Ti RADS 1. Nodule 3: Hypoechoic nodule wider than tall measuring about 3 mm consistent with Ti RADS 2. Nodule 4: Moderately dense tall hypoechoic well-defined 5 x 5 x 2 mm nodule consistent with Ti RADS 4. LEFT THYROID LOBE: 4.4 x 1.5 x 1.2 cm. Homogeneous echotexture with normal vascularity. Nodules: Nodule 1: Hypoechoic nodule could be cystic measuring about 4.4 x 2 mm consistent with Ti RADS 2. Nodule 2: Hypoechoic wider than tall solid nodule measuring about 7 x 7 x 4 mm consistent with Ti RADS 4. Nodule 3: Cystic lesion measuring about 5 mm consistent with Ti RADS 1. ISTHMUS: 3 mm. No thyroid nodules are present. US/Head/Neck Soft Tissue IMPRESSION: Multiple bilateral thyroid nodule for which no FNA is needed at this time and continued surveillance. ACR TYROID IMAGING REPORTING AND DATA SYSTEM (ACR-TIRADS): TR1: Benign TR2: Not suspicious TR3: Mildly suspicious TR4: Moderately suspicious TR5: Highly suspicious ACR RECOMMENDATIONS: TR1: No FNA required TR2: No FNA required TR3: ?1.5 cm follow up, ?2.5 cm FNA, follow up: 1, 3 and 5 years TR4: ?1.0 cm follow up, ?1.5 cm FNA, follow up: 1, 2, 3 and 5 years TR5: ?0.5 cm follow up, ?1.0 cm FNA Annual follow up for up to 5 years Electronically Signed: Toño Alex MD at 15:24 EDT ,
[2024-02-29 13:47] LABS: CREATININE FINGERSTICK < 1.0 mg/dL (0.55-1.02); EGFR FINGERSTICK > 60.0000 mL/min (>60)
== END | disposition home or self-care (01) ==
LOC: CT 12:52
PROVIDERS: PCP Internal Medicine; Referring Provider Internal Medicine; Visit Provider Internal Medicine
DX: R93.89 Abnormal findings on diagnostic imaging of other specified body structures (principal)
CPT/HCPCS: 71275; 76536; Q9967

== ENCOUNTER 2024-04-04 06:22 | Day surgery (SDC) | payer MEDICARE, SELFPAY ==
[2024-04-04] VITALS (8 sets, daily range): BP systolic 127–133; BP diastolic 58–71; PULSE 59–66; RESP 16–20; TEMP 36.3–36.9; O2SAT 59–96; BMI 34.4
[2024-04-04] MEDS: Lactated Ringers 1,000 ML 15 ML IV (06:54)
--- NOTE | 2024-04-04 07:05 | RAD_ITS ---
PROCEDURE: Medial branch nerve. DATE OF EXAMINATION: April 04, 2024. INDICATION: Female, 73 years old. Chronic low back pain. FLUOROSCOPY TIME (if supplied): (16 seconds) minutes/seconds. 7.7 mGy. 6 fluoroscopic images were submitted. RAD/Spine 1 View Any Level IMPRESSION: Intraoperative fluoroscopic imaging provided for bilateral L4-L5 and L5-S1 medial branch nerve block. Electronically Signed: Lyndon Lira MD at 15:15 EDT ,
--- NOTE | 2024-04-04 07:36 | PRE.ANES_ITS ---
ASA Classification* ASA Classification ASA Classification: 3 Assessment & Plan Anesthesia* Anesthesia Assessment Anesthesia Assessment: Discussed sedation and/or anesthesia options, risks, benefits, and alternatives with patient/parents/legal guardian/POA. Questions invited. The patient/parents/legal guardian/POA seems to understand and agrees to proceed with anesthesia plan. Reviewed the physical assessment, medical history, allergy history and patient home medications list prior to surgery/procedure/anesthetic and documented any changes. Performed airway and anesthesia risk assessments. Anesthesia Type Anesthesia Type: MAC (*see written pre anesthesia record for full assessment) Anesthesia Focused Assessment* Temperature: 97.4 F Pulse Rate: 66 Blood Pressure: 128/65 Respiratory Rate: 20 Pulse Ox: 95 Airway Assessment Mouth opens: >3 cm Mallampati Score: II Focused Labs Anesthesia Preop lab: CBC WBC 5.8 K/mm3 (4.4-11.0) 04/02/23 10:29 RBC 4.56 M/mm3 (4.2-5.4) 04/02/23 10:29 Hgb 12.7 g/dL (12.0-15.0) 04/02/23 10:29 Hct 40.1 % (37-47) 04/02/23 10:29 Plt Count 200 K/mm3 (150-450) 04/02/23 10:29 CHEMISTRY Potassium 3.9 mmol/L (3.5-5.1) 04/02/23 10:29 Sodium 141 mmol/L (136-145) 04/02/23 10:29 Magnesium 2.2 mg/dL (1.6-2.6) 07/11/21 09:50 BUN 18 mg/dL (7-18) 04/02/23 10:29 Creatinine 0.91 mg/dL (0.55-1.02) 04/02/23 10:29 Glucose 107 mg/dL (74-106) H 04/02/23 10:29 TSH 3.06 uIU/mL (0.358-3.74) 02/04/21 19:00 COAG Pre-Assessment Diagnosis/Proposed Procedure Planned Operative Procedure(s): jair Anesthesia History Anesthesia History - receiving barn custodian: Anesthesia History - receiving barn custodian Hx Hospitalization No 10/14/23 08:51 Any Problems With Anesthesia No 10/14/23 08:51 Cholinesterase deficiency No 10/14/23 08:51 You/Your Family Experience No 10/14/23 08:51 fever (hyperthermia) with Relationship Recent Exposure to Contagious No 04/04/24 06:46 Disease Does patient have nerve No 10/14/23 08:51 stimulator Patient instructed to have device shut off --Does patient have Pacemaker No 04/04/24 06:46 or ICD? When Was Last Pacemaker Check QUESTION #4 FULL TEXT: You/Your Family Experience fever (hyperthermia) with Anesthesia Last Oral Intake Last Oral intake: Last Oral Intake NPO since 21:00 04/04/24 06:46 Meds taken in AM with sips of Yes 04/04/24 06:46 water? Meds patient instructed to take am of surgery PONV PONV - receiving barn custodian: PONV - receiving barn custodian Female HX of Motion Sickness HX of N/V After Surgery Non-Smoker Duration of Surgery greater than 60 minutes Number of Risk Factors PONV Score Height & Weight Height & Weight: Anesthesia: Height & Weight Height 5 ft 8 in 04/04/24 06:46 Weight: 102.8 kg 04/04/24 06:46 Body Mass Index (BMI) 34.4 04/04/24 06:46 Respiratory Assessment Respiratory Assessment - receiving barn custodian: Respiratory Tract Infection Hx - receiving barn custodian Hx Respiratory Tract Infection No 10/14/23 08:51 STOP Sleep Apnea STOP Sleep Apnea - receiving barn custodian: STOP Sleep Apnea - receiving barn custodian Hx Hypertension Yes: CONTROLLED WITH MED 10/14/23 08:51 Hx Sleep Apnea Yes 02/15/24 09:20 CPAP Yes 02/15/24 09:00 BIPAP No 10/14/23 08:51 Do you snore loudly (louder than talking or can be heard Do you often feel tired/ fatigued/ sleepy during daytime? Has anyone observed you stop breathing during sleep? STOP Results QUESTION #5 FULL TEXT : Do you snore loudly (louder than talking or can be heard through closed doors)? Tobacco Use History Tobacco Use History - receiving barn custodian: Tobacco Use History - receiving barn custodian Tobacco Use Smoking Status Never smoker 11/09/23 09:31 Hx Tobacco Use No 10/14/23 08:51 Years Smoking Packs Smoked per Day Smoking Cessation Date was within the last 15 years Hx Smoking Cessation Date Hx Smoking Cessation Counseling Hematologic Medial History Hematologic Hx - receiving barn custodian: Hematologic Medical Hx - die barber Hx of Blood Transfusion Hx of Transfusion in last 3 Months Date of Last Transfusion (if within last 3 months) Ever experience any problems with transfusion(s)? Specify any problems Hx of Preganancy in last 3 Months Nurse Filling Out Transfusion & Questions: Date: Time: Patient unable to answer at this time (ie. confused, unrespo /Reproduction History /Reproductive History - receiving barn custodian: /Reproductive Hx- receiving barn custodian Hx Now Gestational Age (in weeks): EDC: Hx Hx Para Hx Section SAB No 06/11/23 12:17 Active Medications Active Medications: Current Medications Generic Name Dose Route Start Last Admin Trade Name Freq PRN Reason Stop Dose Admin Lactated Ringer's 1,000 mls @ 15 mls/hr 04/04/24 06:45 04/04/24 06:54 IV 15 mls/hr .Q48H SARA Administration PFSH Medical History History of steroid therapy History of Holter monitoring Tinnitus Lightheaded Wears glasses Arthritis Fatty liver DVT (deep venous thrombosis) Back pain Gastric reflux Non-smoker CPAP (continuous positive airway pressure) dependence History of echocardiogram History of stress test Cardiology follow-up encounter Hypertension History of migraine headaches Osteopenia Osteoarthritis IBS (irritable bowel syndrome) Hyperlipidemia Anemia Premature atrial contraction Essential hypertension Asthma GERD (gastroesophageal reflux disease) Home Medications ?Medication ?Instructions ?Recorded ?Last Taken ?Type albuterol sulfate 90 mcg/actuation 2 puff inhalation Q6H PRN Wheezing 03/12/21 0 02/14/24 History aerosol inhaler (ProAir HFA) cholecalciferol (vitamin D3) 125 125 mcg PO DAILY 03/12/21 04/03/24 History mcg (5,000 unit) tablet omeprazole 20 mg capsule,delayed 20 mg PO DAILY 03/12/21 04/04/24 History release polyethylene glycol 3350 17 gram 17 g PO DAILY 03/12/21 04/03/24 History oral powder packet (Miralax) rosuvastatin 5 mg tablet 10 mg PO DAILY 01/17/22 04/03/24 History aspirin 81 mg capsule 81 mg PO DAILY 09/05/22 04/03/24 History zinc gluconate 30 mg tablet 30 mg PO DAILY 04/16/23 04/03/24 History denosumab 60 mg/mL subcutaneous 60 mg subcut [id number] 06/19/23 02/14/24 History syringe (Prolia) losartan 50 mg tablet 25 mg PO DAILY 06/19/23 04/04/24 History mecobalamin (vitamin B12) 1,000 1,000 mcg PO DAILY 06/19/23 04/03/24 History mcg chewable tablet coenzyme Q10 75 mg capsule (Ultra 75 mg PO DAILY 07/17/23 04/03/24 History CoQ10) calcium carbonate 600 mg-vitamin 1 tab PO DAILY 08/03/23 04/03/24 History D3 5 mcg (200 unit) tablet lactobacillus combination no.4 3 3,000 mmu cells PO DAILY 08/03/23 04/03/24 History billion cell capsule (Probiotic) magnesium oxide 400 mg PO DAILY 08/03/23 04/03/24 History riboflavin (vitamin B2) 50 mg 100 mg PO DAILY 02/08/24 04/03/24 History tablet metoprolol succinate 25 mg 25 mg PO BID #180 tabs 02/25/24 04/04/24 Rx tablet,extended release 24 hr iron 50 mg PO DAILY 04/04/24 04/03/24 History Allergy/AdvReac Type Severity Reaction Status Date / Time clarithromycin (From Biaxin) Allergy Rapid Verified 04/04/24 06:41 heart rate simvastatin Allergy Pain in Verified 04/04/24 06:41 joints Family History Mother Hypertension CVA (cerebral vascular accident) Asthma Father CKD (chronic kidney disease) Colon polyps Brother Crohn's disease Brother , Age 57 Myocardial infarction Son Cancer lymphoma Surgical History History of shoulder surgery Hx of cardiac catheterization Hx of colonoscopy History of partial hysterectomy History of tonsillectomy Social History Smoking Status: Never smoker alcohol intake: never substance use type: does not use caffeine: No Review of Systems (Anesthesia) ROS Narrative System reviewed and no additional complaints, except as documented.
[2024-04-04] MEDS: Lidocaine 1% (30 ml sdv) 30 ML Vial (08:09)
[2024-04-04] MEDS: MethylPREDNISolone Acetate 80 MG/ML Vial (08:11)
--- NOTE | 2024-04-04 08:15 | PCM.OPRPT ---
Report of Operation Date of Procedure: 04/04/24 Description of Surgical Findings:: Pre-Operative Diagnosis: Lumbosacral spondylosis, lumbosacral degenerative disc disease, lumbar facet arthropathy Post-Operative Diagnosis: Lumbosacral spondylosis, lumbosacral degenerative disc disease, lumbar facet arthropathy PROCEDURE PERFORMED: Bilateral lumbar medial branch block at, L4, L5, and S1. ANESTHESIA: MAC BLOOD LOSS: Minimal. COMPLICATIONS: None. DESCRIPTION OF PROCEDURE: History and physical of today was reviewed. Risks and benefits of the procedure were explained. The patient understood and agreed to proceed. Informed consent was obtained. IV inserted per routine protocol. The patient was taken to the operating room and placed in the prone position with a pillow positioned underneath the abdomen. The lower back area was prepped and draped in a sterile fashion using iodine x3. Under fluoroscopy guidance on AP view, the L4 through S1 vertebral bodies were visualized. The skin and subcutaneous tissue was anesthetized with approximately 5 mL of 1% lidocaine using a 25-gauge regular needle. Under direct visualization with fluoroscopy, at approximately 25-degree angle, starting on the left L4, ending on the right L4, passing through the L5 and S1 bilaterally, using a 22-gauge 3-1/2-inch spinal needle, the needle was advanced via the skin. The tip of the needle was maneuvered and directed towards the superior medial gutter of the transverse process at the vicinity of the medial branch. Once tip of the needle was in contact with the bone, the needle was pulled approximately 2 mm off the bone. After negative aspiration for blood or CSF and confirmation on AP, oblique as well as lateral view, a total of 12 mL of preservative-free 0.25% Marcaine with 80 mg of Depo-Medrol was injected in divided doses between those six levels. The needles were then removed intact. The patient experienced no sign or symptoms of intrathecal or intravascular injection. The patient experienced no paresthesia. The procedure was completed without any apparent difficulty or any complications. The patient appeared to tolerate it well. ASSESSMENT AND PLAN: This is a 73-year-old female with lumbosacral spondylosis, lumbosacral degenerative disease, lumbar facet arthropathy status post bilateral lumbar medial branch block at L4, L5, S1, patient will continue current medications, patient will follow in approximately1- 2 weeks for reevaluation
--- NOTE | 2024-04-04 08:18 | PCM.POST.ANE ---
Anesthesia: Postop Eval I Current Vital Signs Temperature: 98 F Pulse Rate: 66 Blood Pressure: 133/58 Respiratory Rate: 16 Pulse Ox: 96 Oxygen Delivery Method: Room Air Assessment Airway patent: Yes Spontaneous unlabored respirations: Yes Mental status: Awake and Calm nausea: No Vomiting: No Anesthesia Complication: No Fluid Hydration Crystalloid volume administer (ml): 500 Total IV fluid infused: 500 Progress Note Anesthesia document: Postop Eval 1 completed: Yes
--- NOTE | 2024-04-04 08:37 | POSTOPAN2_ITS ---
Anesthesia Postop Eval I Sum Postop Eval Completion status Anesthesia document: Postop Eval 1 completed: Yes Anesthesia Postop Eval I Summary Anesthesia Postop Eval I Summary: Anesthesia Postop Eval I: Assessment Summary Airway patent Yes 04/04/24 08:19 PAINTER SIGN MAINTENANCE.[email or web address] Spontaneous unlabored Yes 04/04/24 08:19 PAINTER SIGN MAINTENANCE.ORLY respirations Mental status Awake,Calm 04/04/24 08:19 PAINTER SIGN MAINTENANCE.ORLY nausea No 04/04/24 08:19 PAINTER SIGN MAINTENANCE.ORLY Vomiting No 04/04/24 08:19 PAINTER SIGN MAINTENANCEFARZAD Anesthesia Postop Eval I: Fluid Summary Crystalloid volume administer 500 04/04/24 08:19 PAINTER SIGN MAINTENANCE.ORLY (ml) Colloids volume administered ( ml) Blood Product volume administered (ml) Total IV fluid infused 500 04/04/24 08:19 PAINTER SIGN MAINTENANCEFARZAD Anesthesia Postop Eval I: Summary Notes Anesthesia Complication No 04/04/24 08:19 ELENA Anesthesia Complication Comment: Post-operative progress note Anesthesia: Postop Eval II Evaluation Mental status: Awake Pain Level: 0 nausea: No Vomiting: No
--- NOTE | 2024-04-04 08:37 | PCM.POSTANE2 ---
Anesthesia Postop Eval I Sum Postop Eval Completion status Anesthesia document: Postop Eval 1 completed: Yes Anesthesia Postop Eval I Summary Anesthesia Postop Eval I Summary: Anesthesia Postop Eval I: Assessment Summary Airway patent Yes 04/04/24 08:19 EARTH OBSERVATIONS CHIEF SCIENTIST.DALTONOBKiki Spontaneous unlabored Yes 04/04/24 08:19 EARTH OBSERVATIONS CHIEF SCIENTIST.ORLY respirations Mental status Awake,Calm 04/04/24 08:19 EARTH OBSERVATIONS CHIEF SCIENTIST.ORLY nausea No 04/04/24 08:19 EARTH OBSERVATIONS CHIEF SCIENTIST.ORLY Vomiting No 04/04/24 08:19 EARTH OBSERVATIONS CHIEF SCIENTISTFARZAD Anesthesia Postop Eval I: Fluid Summary Crystalloid volume administer 500 04/04/24 08:19 EARTH OBSERVATIONS CHIEF SCIENTIST.ORLY (ml) Colloids volume administered ( ml) Blood Product volume administered (ml) Total IV fluid infused 500 04/04/24 08:19 EARTH OBSERVATIONS CHIEF SCIENTISTFARZAD Anesthesia Postop Eval I: Summary Notes Anesthesia Complication No 04/04/24 08:19 ELENA Anesthesia Complication Comment: Post-operative progress note Anesthesia: Postop Eval II Evaluation Mental status: Awake Pain Level: 0 nausea: No Vomiting: No
== END 2024-04-04 09:00 | disposition home or self-care (01) ==
LOC: SDC 06:22 → AC 06:23
PROVIDERS: PCP Internal Medicine; Referring Provider Anesthesiology Pain Medicine; Visit Provider Anesthesiology Pain Medicine
PROC: 3E0S3BZ Introduction of Anesthetic Agent into Epidural Space, Percutaneous Approach (ICD-10-PCS; CPT 62322; principal; 2024-04-04 08:00)
DX: M51.37 Other intervertebral disc degeneration, lumbosacral region (principal); M47.817 Spondylosis without myelopathy or radiculopathy, lumbosacral region; M46.96 Unspecified inflammatory spondylopathy, lumbar region; J45.909 Unspecified asthma, uncomplicated; I10 Essential (primary) hypertension; E78.00 Pure hypercholesterolemia, unspecified; G47.33 Obstructive sleep apnea (adult) (pediatric); K21.9 Gastro-esophageal reflux disease without esophagitis; Z79.51 Long term (current) use of inhaled steroids; Z79.82 Long term (current) use of aspirin; Z79.899 Other long term (current) drug therapy
CPT/HCPCS: 64494; 64493; 01992; 64483; 72020; J7120

== ENCOUNTER → 2024-05-30 | Outpatient (CLI) | payer MEDICARE, SELFPAY ==
[2024-05-30] MEDS: Zolpidem Tartrate 5 MG Tablet PO (21:15)
== END | disposition home or self-care (01) ==
LOC: SL 20:02
PROVIDERS: PCP Internal Medicine; Visit Provider Internal Medicine Critical Care Medicine
DX: G47.31 Primary central sleep apnea (principal)
CPT/HCPCS: 95811

== ENCOUNTER → 2024-06-02 | Outpatient (CLI) | payer MEDICARE, SELFPAY ==
--- NOTE | 2024-06-02 07:17 | CT_ITS ---
HISTORY: ischemic colitis. TECHNIQUE: Helically acquired images were obtained of the abdomen and pelvis after the intravenous administration of 100 mL Isovue-370 . CTA protocol with coronal and sagittal reformatted images. A radiation dose optimization technique was used for this scan. 517 images. COMPARISON: None. FINDINGS: LOWER CHEST: Lung bases clear. BOWEL: Small proximal duodenal diverticulum present. Bowel including appendix nondilated. No pneumatosis intestinalis. Colonic diverticulosis without active intraluminal contrast extravasation or focal inflammatory change observed. PERITONEUM: No free air or significant ascites. LIVER/SPLEEN: No enhancing mass. GALLBLADDER/BILIARY TREE: Gallbladder present. PANCREAS/ADRENAL GLANDS: Homogeneous and nonenlarged. KIDNEYS: No hydronephrosis. 1.4 cm indeterminate left upper pole lesion. PELVIC ORGANS: Absent uterus. BONES: Degenerative change. ABDOMINAL AORTA: No aneurysm or dissection flap. Mild atherosclerosis without significant stenosis. CELIAC AXIS: No demonstrated narrowing. SUPERIOR MESENTERIC ARTERY: Mild calcified plaque proximally with less than 30% stenosis. RENAL ARTERIES: Single bilateral renal arteries with mild calcified plaque at their origins, less than 30% stenosis. INFERIOR MESENTERIC ARTERY: No occlusion. ILIAC ARTERIES: Mild calcified plaque of the bilateral common and internal iliac arteries. Patent bilateral external iliac arteries. No aneurysm. CT/CTA Abd/Pelvis W/WO Contrast IMPRESSION: No acute abnormality identified. Colonic diverticulosis without acute diverticulitis. Small indeterminate left renal lesion. Recommend MRI or CT without and with intravenous contrast. Mild atherosclerosis of the abdominal aorta and its major branches. Electronically Signed: Olga Crespo MD at 9:01 EDT ,
[2024-06-02 07:40] LABS: CREATININE FINGERSTICK < 1.0 mg/dL (0.55-1.02); EGFR FINGERSTICK > 60.0000 mL/min (>60)
== END | disposition home or self-care (01) ==
LOC: CT 07:17
PROVIDERS: PCP Internal Medicine; Referring Provider Internal Medicine; Visit Provider Internal Medicine
DX: Z01.812 Encounter for preprocedural laboratory examination (principal); K55.9 Vascular disorder of intestine, unspecified
CPT/HCPCS: 74174; Q9967; A4216

== ENCOUNTER → 2024-06-07 | Outpatient (CLI) | payer MEDICARE, SELFPAY | END | disposition home or self-care (01) | PROVIDERS: PCP Internal Medicine; Referring Provider Physician Assistant Medical; Visit Provider Physician Assistant Medical | DX: I47.19 Other supraventricular tachycardia (principal) | CPT/HCPCS: 93225; 93226 ==

== ENCOUNTER → 2024-06-21 | Outpatient (CLI) | payer MEDICARE, SELFPAY ==
--- NOTE | 2024-06-21 13:31 | MRI_ITS ---
EXAM: MR ABDOMEN WITHOUT AND WITH INTRAVENOUS CONTRAST CLINICAL INDICATION: small lesion seen on left kidney on CTA of abd done on 06/02/24 TECHNIQUE: Multiplanar and multisequence MR images of the abdomen without and with intravenous contrast. CONTRAST: IV 20ML CLARISCAN COMPARISON: CT abdomen and pelvis 06/02/2024 FINDINGS: LOWER THORAX: Normal. No pleural effusion. LIVER: Normal. Normal morphology. No focal mass. GALLBLADDER AND BILE DUCTS: Normal. No gallstones. No gallbladder distention or wall edema. No intra- or extrahepatic biliary ductal dilation. PANCREAS: Normal. No focal cystic or solid mass. SPLEEN: Normal. Normal size without focal cystic or solid mass. ADRENALS: Normal. No nodules. KIDNEYS AND URETERS: 16 mm lesion within the left kidney corresponding to the finding on CT demonstrates increased T1 and slightly increased T2 signal intensity without contrast enhancement suggestive of hemorrhagic or proteinaceous cyst. Several additional subcentimeter nonenhancing cysts noted within both kidneys. No evidence of a solid renal mass. Normal renal size and position. INTRAPERITONEAL SPACE: Normal. No ascites or other fluid collection. No free air. VASCULATURE: Normal. Abdominal aorta is non-dilated. LYMPH NODES: No enlarged lymph nodes. MRI/MRI Abd WITH and W/O Contrast IMPRESSION: 16mm proteinaceous or hemorrhagic left renal cyst. No evidence of a solid renal mass. Electronically Signed: Rojelio Simms MD at 17:08 EDT ,
== END | disposition home or self-care (01) ==
LOC: MRI 13:29
PROVIDERS: PCP Internal Medicine; Referring Provider Internal Medicine; Visit Provider Internal Medicine
DX: R93.5 Abnormal findings on diagnostic imaging of other abdominal regions, including retroperitoneum (principal)
CPT/HCPCS: 74183; A9575

== ENCOUNTER → 2024-08-02 | Outpatient (CLI) | payer MEDICARE, SELFPAY ==
--- NOTE | 2024-08-02 09:27 | BD_ITS ---
STUDY: DUAL ENERGY X-RAY ABSORPTIOMETRY / DXA REASON FOR EXAM: Female, 73 years old. [id number] TECHNIQUE: Bone Mineral Density (BMD) measurements of lumbar spine and bilateral hips were obtained. COMPARISON: Comparison is made with prior study of July 30, 2022. FINDINGS: Lumbar Spine (L1-L4): g/cm2 (0.962) / T-score (-0.5) / Z-score (1.7) Findings are suggestive of normal bone density with a low fracture risk. Left Femur Total: g/cm2 (0.769) / T-score (-1.4) / Z-score (0.2) Left Femoral Neck: g/cm2 (0.705) / T-score (-1.3) / Z-score (0.6) Right Femur Total: g/cm2 (0.750) / T-score (-1.6) / Z-score (0.0) Right Femoral Neck: g/cm2 (0.667) / T-score (-1.6) / Z-score (0.3) The T-Scores on the most recent prior examination were: Lumbar Spine (L1-L4): There has been improvement of bone density since the previous examination. Left Femur Total: which represents a worsening of 1.4%. Right Femur Total: which represents a worsening of 1.3%. BD/Dexa Bone Density Study IMPRESSION: The patient is considered osteopenic as outlined below according to World Regin[employer] Organization (WHO) criteria with a moderate fracture risk. There has been worsening of bone density since the previous examination. Reference Information: The T-score is the number of standard deviations above or below the standard which is normal for young adults at their peak bone mineral density. The World Health Organization (WHO) interprets the T-scores as follows: Above -1 Normal bone density Between -1 and -2.5 Osteopenia Equal to / or below -2.5 Osteoporosis As a practical clinical guideline, osteopenia may be graded as follows: Mild -1 through -1.5 Moderate -1.6 through -2.0 Severe -2.1 through -2.4 The Z-score is the number of standard deviations above or below age-matched controls. A Z-score of less than -1.5 would be considered abnormal. References: 1. NIH Osteoporosis and Related Bone Diseases www osteo.org 2. International Society for Clinical Densitometry www iscd.org 3. National Osteoporosis Foundation www nof.org Electronically Signed: Lyndon Lira MD at 13:44 EST ,
== END | disposition home or self-care (01) ==
LOC: OPBD 09:18
PROVIDERS: PCP Internal Medicine; Referring Provider Internal Medicine; Visit Provider Internal Medicine
DX: Z78.0 Asymptomatic menopausal state (principal)
CPT/HCPCS: 77080

== ENCOUNTER → 2024-08-14 | Outpatient (CLI) | payer MEDICARE, SELFPAY ==
--- NOTE | 2024-08-14 12:35 | MRI_ITS ---
STUDY: MRI LUMBAR SPINE WITHOUT CONTRAST REASON FOR EXAM: Female, 73 years old. lumbar radiculopathy TECHNIQUE: Standardized fat and water weighted pulse sequences were obtained in the sagittal and axial planes. COMPARISON: 06/26/2023 FINDINGS: T12-L1: Normal endplates. Normal disc height, hydration and morphology. Normal bilateral facet joints. Normal central canal and bilateral lateral recesses. Normal bilateral intervertebral neural foramina. Normal lumbar lordosis. There is no substantial scoliosis. Normal conus medullaris that terminates at the T12/L1. L1-2: Normal endplates. Normal disc height, hydration and morphology. Normal bilateral facet joints. Normal central canal and bilateral lateral recesses. Normal bilateral intervertebral neural foramina. L2-3: Mild bilateral facet hypertrophy with fluid in the facet joints consistent with instability and moderate ligament flavum hypertrophy. No change in the 2 mm retrolisthesis of L2 on L3 with a mild bilobed disc protrusion which produces moderate spinal stenosis and moderate bilateral neural foraminal stenosis. L3-4: Mild bilateral facet hypertrophy and moderate ligament flavum hypertrophy. Disc desiccation but no disc protrusion, spinal stenosis, neural foraminal stenosis. L4-5: Mild bilateral facet hypertrophy and moderate ligament flavum hypertrophy. No change in the moderate broad disc protrusion which results in severe spinal stenosis and moderate bilateral neural foraminal stenosis. L5-S1: Normal endplates. Normal disc height, hydration and morphology. Normal bilateral facet joints. Normal central canal and bilateral lateral recesses. Normal bilateral intervertebral neural foramina. Normal visualized sacral ala. Normal visualized paraspinous soft tissue structures. MRI/Spine Lumbar (Routine) IMPRESSION: No change from 06/26/2023. Electronically Signed: Lamin Zapien MD at 12:23 EST ,
== END | disposition home or self-care (01) ==
PROVIDERS: PCP Internal Medicine; Referring Provider Internal Medicine; Visit Provider Internal Medicine
DX: M54.16 Radiculopathy, lumbar region (principal)
CPT/HCPCS: 72148

== ENCOUNTER → 2024-12-27 | Outpatient (CLI) | payer MEDICARE, SELFPAY ==
--- NOTE | 2024-12-27 09:08 | BI_ITS ---
EXAM: SCRN MAMM (CAD)W/CANDACE BILAT 12/27/2024 CLINICAL HISTORY: F, Age 74 y/o , BILAT BRST SCREEN CANDACE ADD-ON TECHNIQUE: Bilateral screening digital breast tomosynthesis with 2D and 3D images. Computer aided detection. COMPARISON: Prior exam(s) dated 10/28/2023, 05/18/2023, 09/17/2022, 07/22/2021. FINDINGS: TISSUE DENSITY: The breast tissue is composed of scattered area of fibroglandular density. Bilateral Breast Mammographic Findings: No significant masses, calcifications or other abnormalities are identified. BI/SCRN MAMM (CAD)W/CANDACE BILAT IMPRESSION: Right Breast: BIRADS 1 NEGATIVE. Left Breast: BIRADS 1 NEGATIVE. OVERALL FINAL ASSESSMENT: BIRADS 1 NEGATIVE. RECOMMENDATION: Routine annual follow-up in 1 Year A letter with findings and recommendations will be mailed to the patient. Reading Location: [id number]
== END | disposition home or self-care (01) ==
PROVIDERS: PCP Internal Medicine; Referring Provider Internal Medicine; Visit Provider Internal Medicine
DX: Z12.31 Encounter for screening mammogram for malignant neoplasm of breast (principal)
CPT/HCPCS: 77063; 77067

== ENCOUNTER → 2025-03-13 | Outpatient (CLI) | payer MEDICARE, SELFPAY ==
--- NOTE | 2025-03-13 14:55 | CT_ITS ---
PROCEDURE: CTA CHEST W/WO CONTRAST 03/13/2025 REASON FOR EXAM: Dilatation of the ascending thoracic aorta. TECHNIQUE: CTA CHEST W/WO CONTRAST Multiplanar Sagittal and Coronal images were obtained. 3D post processing was performed CONTRAST: Isovue 370 VOLUME: 100 mL One or more dose reduction techniques were used (e.g., Automated exposure control, adjustment of the mA and/or kV according to patient size, use of iterative reconstruction technique). RADIATION DOSE SUMMARY: CTDlvol: 16 mGy DLP: 617.98 mGycm COMPARISON: Prior study dated February 29, 2024. FINDINGS: Hardware: None Lymph nodes: No significant lymph nodes are seen. Heart: Coronary artery calcification. Thoracic Aorta: Once again, there is dilatation of the root of the ascending thoracic aorta with a transverse dimension of 47.7 mm. Minimal atherosclerotic plaque formation of the aortic arch. Pulmonary Vessels: No evidence of pulmonary embolism. Lungs and Airways: Minimal degree of bibasilar linear atelectasis. Pleura: No effusion. Upper Abdomen: Unremarkable Bones: Degenerative changes of the thoracic spine. CT/CTA Chest W/WO Contrast IMPRESSION: Stable dilatation of the root of the ascending thoracic aorta with a transverse dimension of 47.7 mm. Reading Location: [facility]
== END | disposition home or self-care (01) ==
LOC: CT 14:50
PROVIDERS: PCP Internal Medicine; Referring Provider Physician Assistant Medical; Visit Provider Physician Assistant Medical
DX: I77.810 Thoracic aortic ectasia (principal)
CPT/HCPCS: 71275; Q9967; A4216

== ENCOUNTER → 2025-03-21 | Outpatient (CLI) | payer MEDICARE, SELFPAY ==
--- NOTE | 2025-03-21 07:41 | US_ITS ---
PROCEDURE: THYROID 03/21/2025 REASON FOR EXAM: MULTIPLE THYROID NODULE TECHNIQUE: THYROID COMPARISON: Thyroid ultrasound 02/29/2024. FINDINGS: Right thyroid lobe size: 3.9 x 1.9 x 1.7 cm Left thyroid lobe size: 4.4 x 1.4 x 1.6 cm Isthmus: 0.4 cm Background parenchymal echotexture is homogeneous. Nodules: There are small bilateral colloid cysts which do not meet criteria for dedicated follow-up. US/Thyroid IMPRESSION: Normal thyroid ultrasound. Bilateral colloid cysts which do not meet criteria for further dedicated follow-up by ACR TI-RADS criteria. Reading Location: [id number]
--- NOTE | 2025-03-21 07:41 | US_ITS ---
PROCEDURE: ABDOMEN LIMITED 03/21/2025 REASON FOR EXAM: FATTY LIVER TECHNIQUE: ABDOMEN LIMITED. Real-time ultrasound of the right upper quadrant with image documentation. FINDINGS: LIVER ECHOGENICITY: Increased SIZE: Normal measuring 16.0 cm in length. CONTOUR: Smooth. MASS: None. PORTAL VEIN: Normal direction hepatopetal portal venous flow. GALLBLADDER SIZE: Normal. STONES: None. SLUDGE: None. WALL THICKNESS: Normal measuring 2.8 mm. PERICHOLECYSTIC FLUID: None. SONOGRAPHIC NUNEZ'S SIGN: Negative. BILE DUCTS: Normal with the CBD measuring 3.4 mm in diameter. PANCREAS: Unremarkable as visualized. The distal pancreas is obscured by overlying bowel gas. RIGHT KIDNEY: Normal size and echogenicity with a length of 11.9 cm. An extrarenal pelvis is again noted. No hydronephrosis, nephrolithiasis, cyst or mass seen. ASCITES/EFFUSIONS: None. OTHER: None. US/Abdomen Limited IMPRESSION: FATTY LIVER. OTHERWISE UNREMARKABLE ABDOMINAL ULTRASOUND. Reading Location: [id number]
== END | disposition home or self-care (01) ==
PROVIDERS: PCP Internal Medicine; Referring Provider Internal Medicine; Visit Provider Internal Medicine
DX: E04.2 Nontoxic multinodular goiter (principal); K76.0 Fatty (change of) liver, not elsewhere classified
CPT/HCPCS: 76536; 76705

== ENCOUNTER → 2025-05-12 | Outpatient (CLI) | payer MEDICARE, SELFPAY ==
--- NOTE | 2025-05-12 11:40 | MRI_ITS ---
PROCEDURE: LOWER EXT NO JOINT W/WO CONT 05/12/2025 REASON FOR EXAM: MRI OF RIGHT THIGH WITHOUT THEN WITH CONTRAST. Right thigh mass for years, but newly painful. Recent back surgery. TECHNIQUE: Procedure Code: [id number] Modality: MR Procedure: MRI of the proximal right thigh without and with contrast. CONTRAST: Clariscan VOLUME: 20 mL intravenous. COMPARISON: Right hip and pelvis series of 04/17/2025. FINDINGS: Limited imaging of the right hip shows no abnormality. No evidence of femoral head osteonecrosis. No joint effusion is evident. At the level of the right femoral neck are seen 2 very proximal right thigh skin markers. Beneath the markers, no abnormal mass is seen, but normal subcutaneous fat and normal appearing muscle. Mild edema and postcontrast enhancement is seen adjacent to the right greater trochanter, most consistent with greater trochanteric bursitis. No abnormal osseous signal is seen. No area of abnormal postcontrast enhancement is noted. No free or loculated fluid collection is noted. MRI/Lower Ext No Joint W/WO Cont IMPRESSION: 1. Findings suggestive of right greater trochanteric bursitis. 2. No other significant abnormality is evident. Reading Location: [place] [id number]
== END | disposition home or self-care (01) ==
PROVIDERS: PCP Internal Medicine; Referring Provider Internal Medicine; Visit Provider Internal Medicine
DX: R22.41 Localized swelling, mass and lump, right lower limb (principal)
CPT/HCPCS: 73720; A9575